=== PATIENT | female | born 1985 | race Caucasian/White ===

== ENCOUNTER → 2024-05-04 | Outpatient (CLI) | payer OTHER, SELFPAY ==
--- NOTE | 2024-05-04 15:52 | BI_ITS ---
MAMMOGRAPHY - BILATERAL SCREENING REASON FOR EXAM: Female, 38 years old. Routine annual screening examination. PERTINENT HISTORY: Grandmother with breast cancer. Remote left excisional breast biopsy. TECHNIQUE: Digital bilateral breast tatyana (3D mammographic acquisition) in the CC and MLO projections. 2-D mediolateral oblique (MLO) and craniocaudad (CC) views of both breasts were obtained. CAD: Full Field Digital Mammography with Computer Added Detection was performed. COMPARISON: None. Baseline examination. FINDINGS: Breast Composition: The breasts are extremely dense, which lowers the sensitivity of mammography. There are no dominant masses or suspicious calcifications. No other significant abnormalities are identified. BI/SCRN MAMM (CAD)W/TATYANA BILAT IMPRESSION: Negative screening mammogram. Yearly followup mammogram recommended. (A) ASSESSMENT CATEGORY: BIRADS Category 1: Negative. A letter regarding these results will be sent to the patient by the facility within 30 days. Approximately 10% of breast cancers are not detected by mammography. A normal mammogram should not delay biopsy of a clinically suspicious abnormality. [id number] Electronically Signed: Brian Catalan MD at 8:44 EST ,
== END | disposition home or self-care (01) ==
LOC: OPBI 15:49
PROVIDERS: PCP Physician Assistant
DX: Z12.31 Encounter for screening mammogram for malignant neoplasm of breast (principal)
CPT/HCPCS: 77063; 77067

== ENCOUNTER → 2025-05-07 | Outpatient (CLI) | payer OTHER, SELFPAY ==
--- NOTE | 2025-05-07 15:31 | BI_ITS ---
EXAM: SCRN MAMM (CAD)W/TATYANA BILAT DATE: 05/07/2025 CLINICAL HISTORY: F, Age 39 y/o , SCREENING Grandmother with breast cancer. Remote left excisional breast biopsy. TECHNIQUE: Procedure Code: [id number] Modality: MG Procedure: SCRN MAMM (CAD)W/TATYANA BILAT COMPARISON: Prior exam(s) dated May 04, 2024.. FINDINGS: TISSUE DENSITY: The breasts are extremely dense, which lowers the sensitivity of mammography. Bilateral Breast Mammographic Findings: No significant masses, calcifications or other abnormalities are identified. No suspicious masses, areas of developing architectural distortion, or suspicious calcifications. There has been no significant interval change. BI/SCRN MAMM (CAD)W/TATYANA BILAT IMPRESSION: Stable bilateral screening mammogram. OVERALL FINAL ASSESSMENT BI-RADS 1: NEGATIVE. RECOMMENDATION: Routine annual follow-up in 1 Year Additional Recommendation none A letter with findings and recommendations will be mailed to the patient. Reading Location: [facility]
--- OUTSIDE RECORDS SUMMARY | 2025-05-07 15:49 | XMS RPT_ITS | CCD ---
Author Organization [facility] Care Team Providers Care Lead Caster Helper Name Role Phone Mono Lamar Unavailable Unavailable Mono Lamar Unavailable Unavailable Jeet Caldwell Unavailable Unavailable Telma, Yoshi Unavailable Unavailable Telma, Yoshi Unavailable Unavailable Telma, Yoshi Unavailable Unavailable Telma, Yoshi Unavailable Unavailable Telma, Yoshi Unavailable Unavailable Katelin, Leslie Hoffman S Unavailable Unavailable Unavailable Antonino, Dee L Unavailable Unavailable Unavailable Katelin, Leslie Nag S Unavailable Unavail able Antonino, Dee L Unavailable Unavailable Jose Rafael Gillian Unavailable Unavailable Gillian Mantilla Attending Unavailable Antonino, Mrs. Dee Sanchezn Primary Care Unavailabl e ANTONINO, Mrs. PRICE JUNE Referring Unavailabl e ANTONINO, Mrs. PRICE JUNE Primary Care Unavailabl e ANTONINO, Mrs. LEVINPAT WATKINS Attending Unavailabl e ANTONINO, Mrs. LEVINPAT WATKINS Referring Unavailabl e ANTONINO, Mrs. LEVINPAT WATKINS Primary Care Unavailabl e ANTONINO, Mrs. LEVINPAT WATKINS Attending Unavailabl e ANTONINO, Mrs. PRICE JUNE Referring Unavailabl e [facility] Primary Care Unavailable ANTONINO, Mrs. LEVINPAT WATKINS Attending Unavailabl e ANTONINO, Mrs. LEVINPAT WATKINS Primary Care Unavailabl e ANTONINO, Mrs. LEVINPAT WATKINS Attending Unavailabl e ANTONINO, DEE WATKINS Referring Unavailabl e MYLES MCDONNELL Primary Care Unavailable ONI DO-NANCY ARMSTRONG Attending Unavail able MYLES MCDONNELL Primary Care Unavailable MYLES MCDONNELL Primary Care Unavailable ONI DO-FACNANCY HANSON Attending Unavail able MYLES MCDONNELL Primary Care Unavailable Antonino CAREER PLACEMENT SPECIALIST-[place], Dee Dickson Primary Care Provider Entiat CAREER PLACEMENT SPECIALIST-[place], Dee Dickson Unavailable Antonino CAREER PLACEMENT SPECIALIST-FOREIGN EXCHANGE TRADER, Dee L Unavailable Stentz PA-C, Saeed Primary Care Provider STENTZ, SAEED Primary Care Unavailable KEYANNA MARSHALL Referring Unavailable KEYANNA MARSHALL Attending Unavailable Stentz, Saeed Primary Care Unavailable Stentz PA-C, Saeed Unavailable [phone] STENTZ, SAEED Attending Unavailable STENTZ, SAEED Referring Unavailable STENTZ, SAEED Primary Care Unavailable STENTZ, SAEED Primary Care Unavailable STENTZ, SAEED Primary Care Unavailable NANCY RAHMAN Attending Unavail able STENTZ, SAEED Primary Care Unavailable Allergies Allergy Classification Reported Allergen(s) Allergy Type Date of Onset Reaction(s) Facility (12 sources) Erythromycin; Translations: [erythromycin] Drug Allergy 12-11-2022 Nausea Only [facility] Repository Medications Current Medications Medication Drug Class(es) Dates Sig (Normalized) Sig (Original) Bacillus coagulans / Inulin (3 sources) BACILLUS COAGULANS-INULIN ORAL Take by mouth. Active BACILLUS COAGULA NS-INULIN ORAL Take by mouth. 0 Active 12 hr buPROPion hydrochloride 150 mg extended release oral tablet (11 sources) Aminoketone Start: 12-24-2023 End: 06-15-2025 take 1 tablet by mouth every twelve hours buPROPion SR (Wellbutrin SR) 150 mg 12 hr tablet Indications: Anxiety Take 1 tablet (150 mg) by mouth every 12 hours. 180 tablet 3 06/15/2024 06/15/2025 Active Start: 12-11-2022 End: 12-11-2023 take 1 tablet by mouth every twelve hours buPROPion SR (Wellbutrin SR) 150 mg 12 hr tablet Indications: Anxiety Take 1 tablet (150 mg) by mouth every 12 hours. 180 tablet 3 12/11/2022 12/11/2023 Active Start: 11-16-2021 take 1 tablet by kallie th every hour buPROPion HCl ER (SR) 150 MG Oral Tablet Extended Release 12 Hour TAKE 1 TABLET Every twelve hours Quantity: 60 Refills: 5 Ordered: 19-Jun-2022 Dee Rees Start : 16-Nov-2021 Active Start: 11-16-2021 take 1 tablet by kallie th once daily, then take 1 tablet by mouth twice daily buPROPion HCl ER (SR) 150 MG Oral Tablet Extended Release 12 Hour TAKE 1 TABLET DAILY FOR 2 WEEK, THEN TAKE 1 TABLET TWICE DAILY. Quantity: 42 Refills: 0 Ordered: 16-Nov-2021 AntoninoDee Wang Start : 16-Nov-2021 Active Wellbutrin Quant ity: 0 Refills: 0 Ordered: 05-Jul-2022 Janine Poe Generic Substitution Allowed docusate sodium 250 mg oral capsule (1 source) Start: 06-13-2023 End: 08-12-2023 take 1 capsule by mouth twice daily as needed for constipation docusate sodium 250 mg capsule Indications: Chronic idiopathic constipation Take 1 capsule (250 mg) by mouth 2 times a day as needed (constipation). 60 capsule 1 06/13/2023 08/12/2023 Active levonorgestrel 0.069783 mg/hr intrauterine system (5 sources) Progestin, Progestin-contain ing Intrauterine Device levonorgestrel (Mirena) 21 mcg/24 hours (8 yrs) 52 mg IUD 52 mg by intrauterine route 1 time. Active End: 06-13-2023 levonorgestreL (Kyleena) 17. 5 mcg/24 hrs (5 yrs) 19.5 mg intrauterine device by intrauterine route once daily. 0 06/13/2023 Discontinued (Med List Cleanup) Kyleena 19.5 mg intrauterine device ; 1 each intrauterine Quantity: 0 Refills: 0 Ordered: 05-Jul-2022 Jose Rafael, Gillian Generic Substitution Allowed multivitamin tablet (3 sources) multivitamin tab let Take by mouth. Active multivitamin tab let Take by mouth. 0 Active psyllium 400 mg oral capsule (8 sources) psyllium (Metamu ciL) 0.4 gram capsule Take by mouth. Active Metamucil CAPS Q uantity: 0 Refills: 0 Ordered: 16-Nov-2021 DO Active Completed/Discontinued Medications Medication Drug Class(es) Dates Sig (Normalized) Sig (Original) Cetirizine (6 sources) Histamine-1 Receptor Antagonist Zyrtec TABS Quantity: 0 Refills: 0 Ordered: 07-Feb-2021 DO Active Multi-Vitamins TABS (6 sources) Multi-Vitamins T ABS Quantity: 0 Refills: 0 Ordered: 07-Feb-2021 DO Active norethindrone acetate 5 mg oral tablet (3 sources) End: 12-15-2021 Norethindrone Acetate 5 MG Oral Tablet Quantity: 0 Refills: 0 Ordered: 15-Dec-2021 DO End : 15-Dec-2021 Complete Norethindrone Ac etate 5 MG Oral Tablet Quantity: 0 Refills: 0 Ordered: 16-Nov-2021 DO Active Probiotic CAPS (6 sources) Probiotic CAPS Q uantity: 0 Refills: 0 Ordered: 07-Feb-2021 DO Active Problems Active Problems Problem Classification Problem Date Documented Da te Episodic/Chronic Anxiety disorders (14 sources) Anxiety; Translations: [Anxiety state, unspecified] Onset: 12-11-2022 12-11-2022 Chronic Disorders of lipid metabolism (3 sources) Raised low density lipoprotein cholesterol; Translations: [Pure hypercholesterolem ia, unspecified] Onset: 06-15-2024 06-15-2024 Chronic Fever of unknown origin (2 sources) Fever; Translations: [Fever, unspecified] 07-05-2022 Episodic Immunizations and screening for infectious disease (8 sources) Patient encounter status; Translations: [Other specified vaccination] 06-13-2023 Episodic Other gastrointestinal disorders (5 sources) Chronic idiopathic constipation; Translations: [Chronic idiopathic constipation] Onset: 12-11-2022 06-13-2023 Chronic Other gastrointestinal disorders (1 source) Chronic idiopathic constipation; Translations: [Chronic idiopathic constipation] Onset: 06-13-2023 Chronic Other gastrointestinal disorders (7 sources) Chronic constipation; Translations: [Constipation, unspecified] Onset: 12-11-2022 12-11-2022 Episodic Other screening for suspected conditions (not mental disorders or infectious disease) (5 sources) Encounter for screening for lipoid disorders; Translations: [Encounter for screening for other suspected endocrine disorder] Onset: 06-29-2023 Episodic Other upper respiratory infections (2 sources) Acute pharyngitis; Translations: [Acute pharyngitis] 07-05-2022 Episodic Residual codes; unclassified (1 source) Body mass index 20-24 - normal; Translations: [Body mass index (BMI) 24.0-24.9, adult] 06-13-2023 Episodic Residual codes; unclassified (2 sources) Body mass index (BMI) 24.0-24.9, adult; Translations: [Body mass index (BMI) 24.0-24.9, adult] Onset: 06-29-2023 Episodic Unclassified (2 sources) FEVER SORE THROAT 07-05-2022 Comment on above: FEVER SORE THROAT Past or Other Problems Problem Classification Problem Date Documented Da te Episodic/Chronic Headache; including migraine (6 sources) Headache; Translations: [Headache] Onset: 12-11-2022 12-11-2022 Episodic Other upper respiratory disease (9 sources) Nasal congestion; Translations: [Other disease of nasal cavity and sinuses] Onset: 12-11-2022 12-11-2022 Episodic Unclassified (2 sources) Onset: 06-13-2023 Resolved: 06-15-2024 06-13-2023 Results Test Name Value Interpretation Reference Range Facility THIN PREP IMAGE SEND OUTon 0 10-08-2024 THINPREP TIS PAP SEE COMMENT Normal [facility] Comment on above: Order Comment: Order ed on Fin# [id number] Result Comment: THIN PREP TIS PAP Lab: [facility] CLINICAL INFORMATION: None given LMP: None given prev. Pap: None given prev. Bx: None given SOURCE: None given STATEMENT OF ADEQUACY: Satisfactory for evaluation. Endocervical/transformation zone component present. INTERPRETATION/RESULT: Cytology Results: Negative for intraepithelial lesion or malignancy. COMMENT: This Pap test has been evaluated with computer assisted technology. FLOTATION TENDER: DAKOTA LOPEZ(ASCP) CT screening location: [facility], [address] [place] [address], [place] [address]. For questions contact Anatomic Pathology Client Services at [phone] EXPLANATORY NOTE: The Pap is a screening test for cervical cancer. It is not a diagnostic test and is subject to false negative and false positive results. It is most reliable when a satisfactory sample, regularly obtained, is submitted with relevant clinical findings and history, and when the Pap result is evaluated along with historic and current clinical information. PERFORMING SITE: [facility] [place] [facility] [address] [address] Cleaning Team Member: YUNG OSULLIVAN MD, CLIA: [id number] Performed By: #### 4 [id number] #### [facility] [address] [place] [address] Fabrication Specialist: Beck Bradford MD [facility] Physician Progress No gunnar 10-07-2024 [facility] Physician Progress Note DEANA WYLIE :1985 Registration Date:10/02/2024 Assessment/Plan Patient is a 39-year-old female with a history of PMS and IUD check up presenting today for PMS management and IUD check up. 1. Well woman exam Z01.419 2. IUD check up Z30.431 - Mirena IUD is in place and functioning as expected. - Discussed that Mirena helps blunt estrogen dominance and associated symptoms in most women. - Advised that an additional dose of progesterone can be added if mood symptoms persist. 3. Cervical cancer screening Z12.4 4. Screening mammogram, encounter for Z12.31 5. PMS (premenstrual syndrome) N94.3 - Patient experiences mood fluctuations and breast tenderness associated with PMS. - Discussed the use of additional progesterone (Prometrium) to help with mood stabilization, especially during the summer months. - Prometrium to be taken at night for its calming effects and to aid sleep. - Consideration of [id number] supplement from [employer] for PMS management as an alternative to increasing medication. - Patient to monitor symptoms and call if further intervention is needed. Medication Reconciliation What How Much When Instructions Unchanged buPROPion (BuPROPion (Eqv-Wellbutrin SR) 150 mg/ 12 hours oral tablet, extended release) Contact prescribing physician if questions or concerns Unchanged levonorgestrel (Mirena 52 mg intrauterine device) 1 Each Intrauteral ONCE Duration: 1 Doses Contact prescribing physician if questions or concerns What How Much When Comments Stop Taking miSOPROStol (Cytotec 200 mcg oral tablet) 1 Tabs Oral TWICE A DAY take one tablet the night before the procedure and take the other tablet the morning of the procedure Chief Complaint Annual, 05/01/21 HPV: Negative, 09/16/23- neg mammo 05/04/24 neg mirena 07/20/22 light spotting for period History of Present Illness Disclaimer: The content of this note was generated by an artificial intelligence (AI) language model version 25.03.0.0 well woman due for pap and hpv due for mammo mirena 2022 bleeding controlled but mood can still fluctuate aygestin in past didn't help will try prometrium she is on buproprion once a month The patient is a 39-year-old female with a history of PMS and IUD use, presenting for an annual wellness visit. PMS and Breast Tenderness The patient reports experiencing PMS symptoms, including mood fluctuations and breast tenderness, approximately once a month. These symptoms are cyclical and coincide with her menstrual cycle. Despite the use of Mirena, she still experiences these symptoms, although the bleeding is not a significant issue. IUD Check up and Mood Fluctuations The patient has been using Mirena for contraception and to manage her PMS symptoms. She reports that while the Mirena has helped with bleeding, it has not completely alleviated her mood symptoms. She has previously tried Agestin, which helped with bleeding but not with mood stabilization. The patient experiences mood fluctuations once a month, which she describes as significant but not severe enough to warrant additional medication at this time. She has not tried increasing her dose of bupropion, as her mood is generally well-managed. She is considering non-medication options, such as supplements from [employer], to help manage her PMS symptoms. Review of Systems Neurological: Negative for brain issues. Positive for mood changes. Musculoskeletal: Positive for breast tenderness. Genitourinary: Positive for light period. Negative for pain with intercourse. Physical Exam Vitals & Measurements BP: 120/70 HT: 157 cm WT: 59.2 kg BMI: 24.02 Depression Screening Scores Initial Depression Screen Score: 0 (10/02/24 11:38:00) Fall Risk Assessment Is the patient ambulatory (mobile): Yes (10/02/24 11:38:00) Have you had a fall within the past: No (10/02/24 11:38:00) Have you had 2 or more falls in the past: No (10/02/24 11:38:00) Genitourinary: No dyspareunia reported Constitutional: Appears appropriate for age, non-toxic, and comfortable. No signs of apparent distress present. Speech is clear and appropriate. Stand comfortably erect. Patient is cooperative. VSS and reviewed Eyes: Full range of extra-ocular motion. Conjunctivae clear. Neck: supple and no thyromegaly Respiratory: Chest expansion is adequate bilaterally. Abdomen: Soft and Non-tender, Non distended Musculoskeletal: Walks with a normal gait. Motor strength is intact Ext: No C/C/E Skin: Warm and dry with no evidence of unusual rashes or suspicious lesions. Neurological: Alert and oriented x 3. Mood is normal. Extremities: No clubbing, Cyanosis or edema FORGEMAN HELPER EXAM: Breast exam: normal bilateral breast tissue, no skin changes no masses and no nipple discharge, no LAD Pelvic Exam: Ext Gen: normal Vulva anatomy no rash Perineum: no lesions and intact Vagina: no cystocele or rectocele vaginal mucosa healthy (more content not included)... Normal [facility] GP HPVon 10-06-2024 GP HPV Negative Normal [facility] Comment on above: Order Comment: Order ed on Fin# [id number] Result Comment: This HPV assay is being performed via a second generation NAAT that utilizes target capture, release engineer mediated amplification and dual kenetic assay technologies. Performed By: #### 1 [id number] #### [facility] [address] [place], [place] [address] Fabrication Specialist: Beck Bradford MD SCRN MAMM (CAD)W/TATYANAАнна Dave n 05-04-2024 SCRN MAMM (CAD)W/TATYANA DANNA [facility] Imaging Services [address] [place] [address] SCRN MAMM (CAD)W/TATYANAАнна CLAY MR#: [id number] Acct: [id number] Name: DEANA WYLIE Rep #: [id number] : 1985 F 38 From: Brian boyce MD PCP: JAMEL Champion Status: REG CLI Study: SCRN MAMM (CAD)W/TATYANA BILAT Date of Exam: 02/17 Exam# [id number] Ordering Dr: NANCY BUNN [id number] MAMMOGRAPHY - BILATERAL SCREENING REASON FOR EXAM: Female, 38 years old. Routine annual screening examination. PERTINENT HISTORY: Grandmother with breast cancer. Remote left excisional breast biopsy. TECHNIQUE: Digital bilateral breast tatyana (3D mammographic acquisition) in the CC and MLO projections. 2-D mediolateral oblique (MLO) and craniocaudad (CC) views of both breasts were obtained. CAD: Full Field Digital Mammography with Computer Added Detection was performed. COMPARISON: None. Baseline examination. FINDINGS: Breast Composition: The breasts are extremely dense, which lowers the sensitivity of mammography. There are no dominant masses or suspicious calcifications. No other significant abnormalities are identified. BI/SCRN MAMM (CAD)W/TATYANA BILAT IMPRESSION: Negative screening mammogram. Yearly followup mammogram recommended. (A) ASSESSMENT CATEGORY: BIRADS Category 1: Negative. A letter regarding these results will be sent to the patient by the facility within 30 days. Approximately 10% of breast cancers are not detected by mammography. A normal mammogram should not delay biopsy of a clinically suspicious abnormality. [id number] Electronically Signed: Brian Catalan MD at 8:44 EST , CC: JAMEL Champion; NANCY BUNN Director Of Physician Practices: Signed Normal [facility] CBC panel Auto (Bld)on 06-29 Erythrocyte distribution width (RBC) [Ratio] 12.9 % Normal 11.5-14.5 [facility] Comment on above: Performed By: #### 5 8410-2 #### ANSLEY KENT ([id number]) [facility] ([facility]) [address] [place] [address] Hematocrit (Bld) [Volume fraction] 40.3 % Normal 36.0-46.0 [facility] Comment on above: Performed By: #### 5 8410-2 #### ANSLEY KENT ([id number]) [facility] ([facility]) [address] [place] [address] Hemoglobin (Bld) [Mass/Vol] 13.2 g/dL Normal 12.0-16.0 [facility] Comment on above: Performed By: #### 5 8410-2 #### ANSLEY KENT ([id number]) [facility] ([facility]) [address] [place], [place] [id number] MCH (RBC) [Entitic mass] 30.5 pg Normal 26.0-34.0 [facility] Comment on above: Performed By: #### 5 8410-2 #### ANSLEY KENT ([id number]) [facility] ([facility]) [address] [place] [address] MCHC (RBC) [Mass/Vol] 32.8 g/dL Normal 32.0-36.0 [facility] Comment on above: Performed By: #### 5 8410-2 #### ANSLEY KENT ([id number]) [facility] ([facility]) [address] [place] [address] MCV (RBC) [Entitic vol] 93 fL Normal 80-100 [facility] Comment on above: Performed By: #### 5 8410-2 #### ANSLEY KENT ([id number]) [facility] ([facility]) [address] [place] [address] Nucleated RBC/100 WBC (Bld) [Ratio] 0.0 /100 WBCs Normal 0.0-0.0 [facility] Comment on above: Performed By: #### 5 8410-2 #### ANSLEY KENT ([id number]) [facility] ([facility]) [address] [place] [address] Platelets (Bld) [#/Vol] 287 x10*3/uL Normal 150-450 [facility] Comment on above: Performed By: #### 5 8410-2 #### ANSLEY KENT ([id number]) [facility] ([facility]) [address] [place] [address] RBC (Bld) [#/Vol] 4.33 x10*6/uL Normal 4.00-5.20 [facility] Comment on above: Performed By: #### 5 8410-2 #### ANSLEY KENT ([id number]) [facility] ([facility]) [address] [place] [address] WBC (Bld) [#/Vol] 6.7 x10*3/uL Normal 4.4-11.3 [facility] Comment on above: Performed By: #### 5 8410-2 #### ANSLEY EKNT ([id number]) [facility] ([facility]) [address] [place] [address] Comprehensive metabolic 2000 panelon 06-29-2023 Albumin BCP dye [Mass/Vol] 4.4 g/dL Normal 3.4-5.0 [facility] Comment on above: Performed By: #### 2 4323-8 #### ANSLEY KENT ([id number]) [facility] ([facility]) [address] [place], [place] [address] ALP [Catalytic activity/Vol] 51 U/L Normal 33-110 [facility] Comment on above: Performed By: #### 2 4323-8 #### ANSLEY KENT ([id number]) [facility] ([facility]) [address] [place], [place] [address] ALT With P-5'-P [Catalytic activity/Vol] 9 U/L Normal 7-45 [facility] Comment on above: Result Comment: Edith ents treated with Sulfasalazine may generate falsely decreased results for ALT. Performed By: #### 2 4322-8 #### ANSLEY KENT ([id number]) [facility] ([facility]) [address] [place] [address] Anion gap [Moles/Vol] 11 mmol/L Normal 10-20 [facility] Comment on above: Performed By: #### 2 4322-8 #### ANSLEY KENT ([id number]) [facility] ([facility]) [address] [place] [address] AST With P-5'-P [Catalytic activity/Vol] 13 U/L Normal 9-39 [facility] Comment on above: Performed By: #### 2 4322-8 #### ANSLEY KENT ([id number]) [facility] ([facility]) [address] [place] [address] Bilirubin [Mass/Vol] 0.4 mg/dL Normal 0.0-1.2 [facility] Comment on above: Performed By: #### 2 4322-8 #### ANSLEY KENT ([id number]) [facility] ([facility]) [address] [place] [address] Calcium [Mass/Vol] 9.3 mg/dL Normal 8.6-10.3 [facility] Comment on above: Performed By: #### 2 4322-8 #### ANSLEY KENT ([id number]) [facility] ([facility]) [address] [place] [address] Chloride [Moles/Vol] 105 mmol/L Normal 98-107 [facility] Comment on above: Performed By: #### 2 4322-8 #### ANSLEY KENT ([id number]) [facility] ([facility]) [address] [place] [address] CO2 [Moles/Vol] 27 mmol/L Normal 21-32 [facility] Comment on above: Performed By: #### 2 4322-8 #### ANSLEY KENT ([id number]) [facility] ([facility]) [address] [place] [address] Creatinine [Mass/Vol] 0.73 mg/dL Normal 0.50-1.05 [facility] Comment on above: Performed By: #### 2 4323-8 #### ANSLEY KENT ([id number]) [facility] ([facility]) [address] [place] [address] GFR/1.73 sq M.predicted MDRD (S/P/Bld) [Vol rate/Area] mL/min/{1.73_m2} Normal >60 [facility] Comment on above: Result Comment: Calc ulations of estimated GFR are performed using the 2020 CKD-EPI Study Refit equation without the race variable for the IDMS-Traceable creatinine methods. https://jasn.asnjournals.org/content/early/ASN.428128924 8 Performed By: #### 2 4323-8 #### ANSLEY KENT ([id number]) [facility] ([facility]) [address] [place] [address] Glucose [Mass/Vol] 77 mg/dL Normal 74-99 [facility] Comment on above: Performed By: #### 2 4323-8 #### ANSLEY KENT ([id number]) [facility] ([facility]) [address] [place] [address] Potassium [Moles/Vol] 4.5 mmol/L Normal 3.5-5.3 [facility] Comment on above: Performed By: #### 2 4323-8 #### ANSLEY KENT ([id number]) [facility] ([facility]) [address] [place] [address] Protein [Mass/Vol] 6.8 g/dL Normal 6.4-8.2 [facility] Comment on above: Performed By: #### 2 4323-8 #### ANSLEY KENT ([id number]) [facility] ([facility]) [address] [place] [address] Sodium [Moles/Vol] 138 mmol/L Normal 136-145 [facility] [facility] Comment on above: Performed By: #### 2 4323-8 #### ANSLEY KENT ([id number]) [facility] ([facility]) [address] [place] [address] Urea nitrogen [Mass/Vol] 9 mg/dL Normal 6-23 [facility] Comment on above: Performed By: #### 2 4323-8 #### ANSLEY KENT ([id number]) [facility] ([facility]) [facility] [place] [address] Lipid 1996 panelon 4 Cholesterol [Mass/Vol] 192 mg/dL Normal 0-199 [facility] Comment on above: Result Comment: Age Desirable Borderline High High 0-19 Y 0 - 169 170 - 199 >/= 200 20-24 Y 0 - 189 190 - 224 >/= 225 >24 Y 0 - 199 200 - 239 >/= 240 All ranges are based on fasting samples. Specific therapeutic targets will vary based on patient-specific cardiac risk. Pediatric guidelines reference:Pediatrics 2011, 128(S5).Adult guidelines reference: NCEP ATPIII Guidelines,JEN 2001, 258:2486-97 Venipuncture immediately after or during the administration of Metamizole may lead to falsely low results. Testing should be performed immediately prior to Metamizole dosing. Performed By: #### 2 4331-1 #### ANSLEY KENT ([id number]) [facility] ([facility]) [address] [place] [address] Cholesterol in HDL [Mass/Vol] 50.0 mg/dL Normal [facility] Comment on above: Result Comment: Age Very Low Low Normal High 0-19 Y < 35 < 40 40-45 ---- 20-24 Y ---- < 40 >45 ---- >24 Y ---- < 40 40-60 >60 Performed By: #### 2 4331-1 #### ANSLEY KENT ([id number]) [facility] ([facility]) [facility] [place] [address] Cholesterol in LDL [Mass/Vol] 127 mg/dL High <=99 [facility] Comment on above: Result Comment: Near Borderline AGE Desirable Optimal High High Very High 0-19 Y 0 - 109 --- 110-129 >/= 130 ---- 20-24 Y 0 - 119 --- 120-159 >/= 160 ---- >24 Y 0 - 99 100-129 130-159 160-189 >/=190 Performed By: #### 2 4331-1 #### ANSLEY KENT ([id number]) [facility] ([facility]) [address] [place] [address] Cholesterol in VLDL [Mass/Vol] 15 mg/dL Normal 0-40 [facility] Comment on above: Performed By: #### 2 4331-1 #### ANSLEY KENT ([id number]) [facility] ([facility]) [address] [place] [address] CHOLESTEROL/HDL RATIO 3.8 Normal [facility] Comment on above: Result Comment: Ref Values Desirable < 3.4 High Risk > 5.0 Performed By: #### 2 4331-1 #### ANSLEY KENT ([id number]) [facility] ([facility]) [address] [place] [address]1970 NON HDL CHOLESTEROL 142 mg/dL Normal 0-149 [facility] Comment on above: Result Comment: Age Desirable Borderline High High Very High 0-19 Y 0 - 119 120 - 144 >/= 145 >/= 160 20-24 Y 0 - 149 150 - 189 >/= 190 ---- >24 Y 30 mg/dL above LDL Cholesterol goal Performed By: #### 2 4331-1 #### ANSLEY KENT ([id number]) [facility] ([facility]) [address] [place] [address] Triglyceride [Mass/Vol] 77 mg/dL Normal 0-149 [facility] Comment on above: Result Comment: Age Desirable Borderline High High Very High 0 D-90 D 19 - 174 ---- ---- ---- 91 D- 9 Y 0 - 74 75 - 99 >/= 100 ---- 10-19 Y 0 - 89 90 - 129 >/= 130 ---- 20-24 Y 0 - 114 115 - 149 >/= 150 ---- >24 Y 0 - 149 150 - 199 200- 499 >/= 500 Venipuncture immediately after or during the administration of Metamizole may lead to falsely low results. Testing should be performed immediately prior to Metamizole dosing. Performed By: #### 2 4331-1 #### ANSLEY KENT ([id number]) [facility] ([facility]) [address] [place] [address] TSH WITH REFLEX TO FREE T4 I F ABNORMALon 06-29-2023 TSH Qn 1.65 m[IU]/L Normal 0.44-3.98 [facility] Comment on above: Order Comment: TSH t esting is performed using different testing methodology at [facility] than at other [facility]. Direct result comparisons should only be made within the same method. Performed By: #### T HYDS #### PANCHAL DONTE ([id number]) [facility] ([facility]) [address] [place] [address] Covid 19 Resultson 3 SARS-CoV-2 (COVID-19) RNA KAE+probe Ql (Unsp spec) NEGATIVE COVID-19 Test Coronaviruses are common world-wide and are the cause of many common colds. SARS-COV2 is a new coronavirus that began circulating worldwide in 2019 so we are calling it COVID-19. It has been estimated that four out of five patients with COVID-19 will recover at home without the need for medical attention. Symptoms of COVID-19 may include cough, fever, shortness of breath, loss of taste or smell and other flu-like symptoms including chills, sore muscles, sore throat, and headache. Severe illness is more common in older people and people with other health problems such as high blood pressure, obesity, and immune system problems. If the test is positive, you have COVID-19. You will be contacted by the ordering physicians office and instructed to remain on home isolation, in accordance with CDC guidelines. You may also be contacted by the [facility] to see if any of your close contacts may have been exposed to the virus and need to quarantine. If the test is negative, you likely do not have COVID-19 at this time, but you still may have a different illness that can spread to other people (like Influenza, or the Flu) and could still be at risk for getting COVID-19. We recommend that you stay away from other people to limit the spread of illness until your symptoms are improving and you are fever-free for 24 hours without the use of fever lowering medications such as acetaminophen or ibuprofen. No test is 100% accurate so if you are still concerned you may have COVID-19, talk to your doctor about the need to continue to stay away from others. Medicines Unless your provider told you not to use the following: Acetaminophen (Tylenol and others) is generally safe. Anti-inflammatory medications, such as Ibuprofen (Advil or Motrin) or Naproxen (Aleve) can also be used. Tumw-nnt-kqsgyai cough and cold medicines can be used according to the instructions on the package. Some nxtd-twm-hxexxal medicines also contain acetaminophen. Make sure you are not taking more than your recommended dose. For those not hospitalized, there is no specific treatment available for this illness. Antibiotics do not treat Coronaviruses. Follow-Up Follow up with your doctor by scheduling a virtual visit or consider follow-up at one of our urgent care fever clinics. If you are having difficulty breathing, or are very weak and having difficulty standing, this is a medical emergency. Call 911 or have someone take you to the nearest emergency room immediately. If possible, wear a facemask. Additional guidance from the CDC for patients who tested POSITIVE for COVID-19 How to isolate: Isolate yourself in a specific room at home and limit your contact with others. Use a separate bathroom from other members of the household, when possible. Leave home only to get essential medical care. Do not go to work, school or public areas. Avoid using public transportation, ride-sharing, or taxis. Restrict contact with pets and other animals. If you must care for your pet or be around animals while you are sick, wash your hands before and after your interaction and wear a facemask. Make sure that shared spaces in the home have good airflow, such as by an air conditioner or an opened window, weather permitting. Personal Hygiene Procedures: Wear a face mask when in the same room as other people or pets. If a face mask interferes with your breathing, others should wear a mask when sharing space with you. Frequent hand-washing: wash your hands with soap and water for at least 20 seconds. If soap and water are not available, use alcohol-based hand fiberglass technician. Avoid touching your eyes, nose, and mouth with unwashed hands. Household Hygiene Procedures: Avoid sharing personal household items such as dishes, glassware, cups, eating utensils, towels or bedding with other people or pets in your home. After use, these items should be washed with soap and hot water. Disinfect all high-touch surfaces every day with antibacterial cleaning solutions such as Lysol wipes, bleach, cleansers, etc. High-touch surfaces include tabletops, doorknobs, bathroom fixtures, toilets, phones, keyboards, tablets and bedside tables. Immediately clean any surfaces that may have blood, poop or body fluids on them, using antibacterial cleaning solutions such as Lysol wipes, bleach, cleansers, etc. If clothing or bedding come into contact with blood, poop or body fluids, they should be washed immediately. Follow the directions on the laundry detergent and clothing labels but hot water is recommended when possible. Stopping home isolation precautions: If possible, consult your doctor before stopping home isolation precautions. According to the CDC, you can discontinue home isolation precautions when you have met both of these criteria: Your fever and respiratory symptoms have been gone for 24 rosa (more content not included)... Normal [facility] GROUP A STREP,PCRon 07-05-19 GROUP A STREP,PCR Detected Abnormal Not Detected [facility] Comment on above: Result Comment: This test was performed utilizing an FDA- cleared rapid nucleic acid amplification by PCR to qualitatively detect Group A Streptococci from throat swab specimens without the need for culture confirmation of negative results. Performed By: #### G APC1 #### [place] [address] Lab Specimen Source Throat Normal [facility] Comment on above: Performed By: #### G APC1 #### [place] [address] INFLUENZA A/B, COVID 2019 PC R,SYMPTOMATICon 07-05-2022 INFLUENZA A, PCR Not detected Normal Not Detected [facility] Comment on above: Result Comment: Resp iratory virus testing is performed routinely by PCR for Influenza A/B and RSV. Not Detected results do not preclude Influenza A/B or RSV infections since the adequacy of sample collection or low viral burden may impact the clinical sensitivity of this test method. Performed By: #### C OINP #### [place] [address] INFLUENZA B, PCR Not detected Normal Not Detected [facility] Comment on above: Result Comment: Resp iratory virus testing is performed routinely by PCR for Influenza A/B and RSV. Not Detected results do not preclude Influenza A/B or RSV infections since the adequacy of sample collection or low viral burden may impact the clinical sensitivity of this test method. Performed By: #### C OINP #### [place] [address] SARS-CoV-2 (COVID-19) RNA KAE+probe Ql (Unsp spec) Not detected Normal Not Detected [facility] Comment on above: Result Comment: . This test has received FDA Emergency Use Authorization (EUA) and has been verified by [facility]. This test is only authorized for the duration of time that circumstances exist to justify the authorization of the emergency use of in vitro diagnostic tests for the detection of SARS-CoV-2 virus and/or diagnosis of COVID-19 infection under section 564(b)(1) of the Act, 21 U.S.C. 360bbb-3(b)(1), unless the authorization is terminated or revoked sooner. [facility] is certified under CLIA-88 as qualified to perform high complexity testing. Testing is performed in the [facility] laboratory located at [address] [place] [address]. SARS-CoV-2/Flu/RSV Multiplex Test: Fact sheet for providers: https://www.fda.gov/media/028763/download Fact sheet for patients: https://www.fda.gov/media/017984/download Performed By: #### C OINP #### [place] [address] Lab Specimen Source Nasal, Nasopharyngeal Normal [facility] Comment on above: Performed By: #### C OINP #### [place] [address] Provider Note - ED v3on Provider Note - ED v3 Provider Note: Chart Review HISTORY OF PRESENTING ILLNESS DEANA is a 37 year old Female and was seen by me at 05-Jul-2022 09:09. The historian is the patient. Triage Information: Most recent Vital Sign Value Date PAST MEDICAL HISTORY ALLERGIES/INTOLERANCES: Intolerance Allergen: azithromycin Type: Drug Reaction: GI Upset HEALTH HISTORY: History of anxiety; no other known health issues. Family history: no pertinent history. Social history: non-smoker. . 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 OUTPATIENT MEDICATIONS: Home Medications Review Status for Reconciliation: Complete Med Status: Patient Currently Takes Medications Drug Name: Wellbutrin Instructions: null SIGNIFICANT EVENTS: No known significant events or known past surgical history. Has received 4 doses of the COVID-19 vaccine; has received the [id number] flu vaccine. 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 She has also had fatigue and a slight headache. She denies any runny nose/congestion, ear pain, cough, abdominal pain, chest pain, wheezing/shortness of breath, rashes, urinary symptoms, nausea/vomiting, and diarrhea. Denies any lightheadedness or dizziness; no changes in mental status. No swelling in legs. Appetite is poor but is able to drink fluids without difficulty; denies any loss of sense of taste/smell. Reports feels like symptoms are getting worse since onset. Has been taking Ibuprofen with some relief; no other goqs-igi-yaoayrv medications or home remedies for symptom management. 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 Has received the COVID-19 vaccine x4; has received this year's flu vaccine. Had COVID infection in 01/2022. Is not a smoker. Has IUD for contraception. REVIEW OF SYSTEMS 10 systems reviewed negative with exception of history of present illness listed above PHYSICAL EXAMINATION General: Mildly ill-appearing, well nourished female; alert and oriented; in no acute distress. Sitting comfortably on exam table. Non-dyspneic. Eyes: Pupils equal, round and reactive to light. No conjunctival erythema; no scleral icterus. HENT: No frontal or maxillary sinus tenderness/pressure; no audible nasal congestion. Airway patent, TMs and ear canals clear/unremarkable bilaterally. Oral mucosa moist. Posterior pharynx moderately injected but without vesicles or oropharyngeal exudate. Uvula is midline. Managing oral secretions without difficulty. Neck: Supple. Tender, mobile anterior cervical lymphadenopathy bilat. Trachea is midline. Respiratory: Respirations easy and unlabored, Breath sounds equal. Lungs are clear to auscultation; no wheezes, rhonchi, or rales; has good air movement throughout. No cough noted during visit. Non-dyspneic with ambulation; able to maintain SpO2. Cardiovascular: Tachycardic rate, Regular rhythm. Normal S1S2. No m/r/g. No peripheral edema. Gastrointestinal: Soft, non-tender, non-distended; no RRG. No palpable masses or organomegaly. Bowel sounds normoactive. Musculoskeletal: Grossly normal; appropriate for age. Integumentary: Comunas, warm, dry, and intact. No rashes or skin discoloration appreciated. Good skin turgor. Neurologic: Alert and oriented, no gross deficits. Cognition and Speech: Oriented, Speech clear and coherent. Psychiatric: Cooperative, Appropriate mood & affect. MEDICAL DECISION MAKING Course: Worsening; stable. Impression/Plan: No red flags on exam today, but patient is febrile and tachycardic in office - has not taken any antipyretics yet today. I have reviewed the COVID-19 algorithm, and counseled pt on COVID-19 current recommendations. Symptoms consistent with viral syndrome, but reviewed other potential etiologies, and strep test and nasal swab obtained (using proper PPE) for influenza/COVID-19 testing to err on the side of caution. No antibiotics indicated at this point, but encouraged to continue conservative measures - instructed to push non-caffeinated fluids, rest, and to use appropriate over the counter medications as needed for management of symptoms - Tylenol/ibuprofen, salt water gargles, and Cepacol may be helpful. Advised can review test results on the portal and office will contact pt within the next 24-48 hours. Reviewed instructions for self-isolat (more content not included)... Normal [facility] Office Visit (Family Jerrell hobbs)on 06-19-2022 Follow-up visit Diagnoses/Problems Encounter for preventive health examination (V70.0) (Z00.00) Anxiety (300.00) (F41.9) Chronic constipation (564.00) (K59.09) Orders Anxiety Renew: buPROPion HCl ER (SR) 150 MG Oral Tablet Extended Release 12 Hour; TAKE 1 TABLET Every twelve hours Anxiety, Chronic constipation, Health Maintenance Follow-up visit in 9 Months Outpatient Follow-up Status: Hold For - Scheduling Requested for: 19Jun2022 Provider Impressions Anxiety: Chronic, well controlled on Wellbutrin 150 mg twice daily, no change Chronic constipation: Continue on Metamucil daily, advises to take OTC MiraLAX daily as needed. Follow up in 9 months, annual wellness due at that time Chief Complaint 6 month. History of Present Illness Deana is a 37 yo female, here today for follow up on anxiety She reports anxiety is same, well controlled on current medication States she feels great continues to have occasional constipation, take daily fiber no change in appetite, No acute health concerns today 'Scores and Scales' MARKEL-7 [id number] MARKEL-7 Total Score1 11 Feeling nervous, anxious or on edgeSeveral days - 1 Over half the days - 2 Not being able to stop or control worryingNot at all - 0 Several days - 1 Worrying too much about different thingsNot at all - 0 Several days - 1 Trouble relaxingNot at all - 0 Over half the days - 2 Being so restless that it's hard to sit stillNot at all - 0 Not at all - 0 Becoming easily annoyed or irritableNot at all - 0 Nearly every day - 3 Feeling afraid as if something awful might happenNot at all - 0 Over half the days - 2 Review of Systems Constitutional: no chills, no fever and no night sweats. Cardiovascular: no chest pain, no intermittent leg claudication, no lower extremity edema, no palpitations and no syncope. Respiratory: no cough, no shortness of breath during exertion, no shortness of breath at rest and no wheezing. Gastrointestinal: no abdominal pain, no blood in stools, no constipation, no diarrhea, no melena, no nausea, no rectal pain and no vomiting. Genitourinary: no dysuria, no change in urinary frequency, no urinary hesitancy, no feelings of urinary urgency and no vaginal discharge. Musculoskeletal: no arthralgias, no back pain and no myalgias. Integumentary: no new skin lesions and no rashes. Neurological: no difficulty walking, no headache, no limb weakness, no numbness and no tingling. Psychiatric: no anxiety and no depression. Active Problems Anxiety (300.00) (F41.9) Chronic constipation (564.00) (K59.09) Encounter for immunization (V03.89) (Z23) Headache (784.0) (R51.9) Nasal congestion (478.19) (R09.81) Surgical History History of Lumpectomy left breast 2006 Family History Family history of hyperlipidemia (V18.19) (Z83.438) Family history of hyperlipidemia (V18.19) (Z83.438) Family history of hypertension (V17.49) (Z82.49) Family history of malignant melanoma (V16.8) (Z80.8) Family history of malignant neoplasm of breast (V16.3) (Z80.3) Family history of malignant neoplasm of ovary (V16.41) (Z80.41) Family history of malignant neoplasm of stomach (V16.0) (Z80.0) Family history of malignant melanoma (V16.8) (Z80.8) Social History Never a smoker No advance directives (V49.89) (Z78.9) Allergies erythromycin Nausea; Recorded By: Richa Solares; 03/29/2020 4:39:23 PM Current Meds Medication NameInstructionReason buPROPion HCl ER (SR) 150 MG Oral Tablet Extended Release 12 HourTAKE 1 TABLET Every twelve hoursAnxiety Metamucil CAPS Multi-Vitamins TABS Probiotic CAPS Zyrtec TABS Vitals Vital Signs Recorded: 19Jun2022 03:53PM Heart Rate94 Ivfdniao832 Phzejrmkk33 Height5 ft 1.75 in Ghogpt232 lb 7 oz BMI Pvwwqslqwk85.63 kg/m2 BSA Calculated1.66 Tobacco Useb) No Physical Exam Constitutional: Alert and in no acute distress. Well developed, well nourished. Cardiovascular: Heart rate and rhythm were normal, normal S1 and S2, no gallops, no murmurs and no pericardial rub. Pedal pulses: Normal. No peripheral edema. Pulmonary: No respiratory distress. Clear bilateral breath sounds. Psychiatric: Alert and oriented x 3. Mood and affect: Normal. Signatures Electronically signed by : TORIE Martin; Jun 20 2022 8:51PM EST (Author) Normal [employer] Tobacco Screening.on 023 Tobacco use status [facility] b) No -[facility] Work Phone: No Panel Informationon 12-15 Not at all - 0 [facility] Work Phone: Several days - 1 MP-[address] [facility] Work Phone: Minimal Anxiety [facility] Work Phone: Not difficult at all MP-A [facility] Work Phone: Comment on above: How difficult have t hose problems made it for you to do your work, take care of things at home, or get along with other people? 1 1 [facility] Work Phone: Comment on above: Over the last two we eks, how often have you been bothered by the following problems? Feeling nervous, anxious, or on edge: Several days - 1Not being able to stop or control worrying: Not at all - 0Worrying too much about different things: Not at all - 0Trouble relaxing: Not at all - 0Being so restless that it's hard to sit still: Not at all - 0Becoming easily annoyed or irritable: Not at all - 0Feeling afraid as if something awful might happen: Not at all - 0 Office Visit (Family Medicin e)on 12-15-2021 Follow-up visit Diagnoses/Problems Anxiety (300.00) (F41.9) Headache (784.0) (R51.9) Orders Anxiety Renew: buPROPion HCl ER (SR) 150 MG Oral Tablet Extended Release 12 Hour; TAKE 1 TABLET Every twelve hours Follow-up visit in 6 months Outpatient Follow-up Status: Complete Done: 15Dec2021 Provider Impressions Anxiety: MARKEL-7 score improved from 11 to 1, Well controlled, continue on Wellbutrin twice daily. Headache: Can take OTC Tylenol or Ibuprofen as needed. Encouraged to stay hydrated and focus on healthy diet. Constipation: Increase Metamucil to 2 tablets twice a day, continue on Probiotic. follow up in 6 months Chief Complaint 1 month. Adult Risk Screening Depression/Suicide Screening: During the past 2 weeks, the patient has not felt down, depressed or hopeless. During the past 2 weeks, the patient has not felt little interest or pleasure in doing things. History of Present Illness Deana is a 36 yo female here to follow up on Anxiety. 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 She is now on Wellbutrin twice a day. She states she has had an increase in headaches however she isn't sure if it is from new the Wellbutrin or from stopping the hormone. She states headache are infrequent and tolerable at this time. She reports constipation is improving but still having some days of constipation, is taking Metamucil tablets in AM and a daily probiotic. Denies any other Health concerns 'Scores and Scales' MARKEL-7 [id number] MARKEL-7 Total Score1 11 Feeling nervous, anxious or on edgeSeveral days - 1 Over half the days - 2 Not being able to stop or control worryingNot at all - 0 Several days - 1 Worrying too much about different thingsNot at all - 0 Several days - 1 Trouble relaxingNot at all - 0 Over half the days - 2 Being so restless that it's hard to sit stillNot at all - 0 Not at all - 0 Becoming easily annoyed or irritableNot at all - 0 Nearly every day - 3 Feeling afraid as if something awful might happenNot at all - 0 Over half the days - 2 Review of Systems Constitutional: no chills, no fever and no night sweats. Cardiovascular: no chest pain, no intermittent leg claudication, no lower extremity edema, no palpitations and no syncope. Respiratory: no cough, no shortness of breath during exertion, no shortness of breath at rest and no wheezing. Gastrointestinal: no abdominal pain, no blood in stools, no constipation, no diarrhea, no melena, no nausea, no rectal pain and no vomiting. Genitourinary: no dysuria, no change in urinary frequency, no urinary hesitancy, no feelings of urinary urgency and no vaginal discharge. Neurological: headache, but as noted in HPI. Psychiatric: no homicidal thoughts and no suicidal ideations. Endocrine: no recent weight gain and no recent weight loss. Active Problems Anxiety (300.00) (F41.9) Chronic constipation (564.00) (K59.09) Encounter for immunization (V03.89) (Z23) Nasal congestion (478.19) (R09.81) Surgical History History of Lumpectomy left breast 2006 Family History Family history of hyperlipidemia (V18.19) (Z83.438) Family history of hyperlipidemia (V18.19) (Z83.438) Family history of hypertension (V17.49) (Z82.49) Family history of malignant melanoma (V16.8) (Z80.8) Family history of malignant neoplasm of breast (V16.3) (Z80.3) Family history of malignant neoplasm of ovary (V16.41) (Z80.41) Family history of malignant neoplasm of stomach (V16.0) (Z80.0) Family history of malignant melanoma (V16.8) (Z80.8) Social History Never a smoker No advance directives (V49.89) (Z78.9) Allergies erythromycin Nausea; Recorded By: Richa Solares; 03/29/2020 4:39:23 PM Current Meds Medication NameInstructionReason buPROPion HCl ER (SR) 150 MG Oral Tablet Extended Release 12 HourTAKE 1 TABLET Every twelve hoursAnxiety Metamucil CAPS Multi-Vitamins TABS Probiotic CAPS Zyrtec TABS Vitals Vital Signs Recorded: [id number] 01:37PM Heart Rate72 Ksgjsiwx442 Gswpkxnmj94 Height5 ft 1.75 in Pdqalq235 lb 8 oz BMI Dhnskkhksv42.75 kg/m2 BSA Calculated1.69 Tobacco Useb) No Physical Exam Constitutional: Alert and in no acute distress. Well developed, well nourished. Cardiovascular: Heart rate and rhythm were normal, normal S1 and S2, no gallops, no murmurs and no pericardial rub. Pedal pulses: Normal. No peripheral edema. Pulmonary: No respiratory distress. Clear bilateral breath sounds. Abdomen: Soft nontender; no abdominal mass palpated. No organomegaly. Psychiatric: Judgment and insight: Intact. Mood and affect: Normal. Signatures Electronically signed by : TORIE Martin; Dec 15 2021 1:57PM EST (Author) Normal [facility] Tobacco Screening.on 022 Tobacco use status CP b) No -[facility] Work Phone: No Panel Informationon 11-16 Over half the days - 2 -[facility] Work Phone: Nearly every day - 3 MP-[facility] Work Phone: Not at all - 0 [facility] Work Phone: Several days - 1 [facility] Work Phone: Moderate Anxiety [facility] Work Phone: Somewhat difficult MP-Y[facility] Work Phone: Comment on above: How difficult have t hose problems made it for you to do your work, take care of things at home, or get along with other people? 11 1 [facility] Work Phone: Comment on above: Over the last two we eks, how often have you been bothered by the following problems? Feeling nervous, anxious, or on edge: Over half the days - 2Not being able to stop or control worrying: Several days - 1Worrying too much about different things: Several days - 1Trouble relaxing: Over half the days - 2Being so restless that it's hard to sit still: Not at all - 0Becoming easily annoyed or irritable: Nearly every day - 3Feeling afraid as if something awful might happen: Over half the days - 2 Office Visit ([facility] Medicin e)on 11-16-2021 Follow-up visit Diagnoses/Problems Anxiety (300.00) (F41.9) Orders Anxiety Start: buPROPion HCl ER (SR) 150 MG Oral Tablet Extended Release 12 Hour; TAKE 1 TABLET DAILY FOR 2 WEEK, THEN TAKE 1 TABLET TWICE DAILY Follow-up visit in 1 month Outpatient Follow-up Status: Complete Done: 16Nov2021 Provider Impressions Anxiety: MARKEL score increased at 11, will start on Wellbutrin 150 mg daily will increase dose to 150 mg BID in 2 weeks. Patient to follow up in 1 month. Encouraged to speak with [facility] regarding hormone therapy. Follow up in 1 month Chief Complaint Follow-up on anxiety issues. Adult Risk Screening Depression/Suicide Screening: During the past 2 weeks, the patient has not felt down, depressed or hopeless. During the past 2 weeks, the patient has not felt little interest or pleasure in doing things. History of Present Illness Deana is a 36 yo female here today with complaints of increased anxiety. She has attempted lifestyle changes including diet, exercise, and appropriate sleep, however anxiety is worsening. Anxiety has worsened over last few months, was started on progesterone in April, has has a 10 lb weight gain. Feels as though the weight gain is caused by hormone and/or the anxiety. She would like to start on medication at this time. 'Scores and Scales' MARKEL-7 [id number] MARKEL-7 Total Score11 Feeling nervous, anxious or on edgeOver half the days - 2 Not being able to stop or control worryingSeveral days - 1 Worrying too much about different thingsSeveral days - 1 Trouble relaxingOver half the days - 2 Being so restless that it's hard to sit stillNot at all - 0 Becoming easily annoyed or irritableNearly every day - 3 Feeling afraid as if something awful might happenOver half the days - 2 Review of Systems Constitutional: no chills, no fever and no night sweats. Cardiovascular: no chest pain, no intermittent leg claudication, no lower extremity edema, no palpitations and no syncope. Respiratory: no cough, no shortness of breath during exertion, no shortness of breath at rest and no wheezing. Gastrointestinal: no abdominal pain, no blood in stools, no constipation, no diarrhea, no melena, no nausea, no rectal pain and no vomiting. Genitourinary: no dysuria, no change in urinary frequency, no urinary hesitancy, no feelings of urinary urgency and no vaginal discharge. Neurological: no difficulty walking, no headache, no limb weakness, no numbness and no tingling. Psychiatric: anxiety, but as noted in HPI, no depression, no anhedonia and no substance use disorders. Active Problems Anxiety (300.00) (F41.9) Chronic constipation (564.00) (K59.09) Encounter for immunization (V03.89) (Z23) Nasal congestion (478.19) (R09.81) Surgical History History of Lumpectomy left breast 2006 Family History Family history of hyperlipidemia (V18.19) (Z83.438) Family history of hyperlipidemia (V18.19) (Z83.438) Family history of hypertension (V17.49) (Z82.49) Family history of malignant melanoma (V16.8) (Z80.8) Family history of malignant neoplasm of breast (V16.3) (Z80.3) Family history of malignant neoplasm of ovary (V16.41) (Z80.41) Family history of malignant neoplasm of stomach (V16.0) (Z80.0) Family history of malignant melanoma (V16.8) (Z80.8) Social History Never a smoker No advance directives (V49.89) (Z78.9) Allergies erythromycin Nausea; Recorded By: Richa Solares; 03/29/2020 4:39:23 PM Current Meds Medication NameInstructionReason Metamucil CAPS Multi-Vitamins TABS Norethindrone Acetate 5 MG Oral Tablet Probiotic CAPS Zyrtec TABS Vitals Vital Signs Recorded: 16Nov2021 10:46AM Heart Rate81 Ojdjcutw999 Ybsqtbchg90 Height5 ft 1.75 in Sutyoz778 lb 6 oz BMI Txilikuast68.99 kg/m2 BSA Calculated1.67 Tobacco Useb) No Physical Exam Constitutional: Alert and in no acute distress. Well developed, well nourished. Cardiovascular: Heart rate and rhythm were normal, normal S1 and S2, no gallops, no murmurs and no pericardial rub. Pedal pulses: Normal. No peripheral edema. Pulmonary: No respiratory distress. Clear bilateral breath sounds. Psychiatric: Judgment and insight: Intact. Mood and affect: Normal. Signatures Electronically signed by : TORIE Martin; Nov 16 2021 12:51PM EST (Author) Normal [facility] Tobacco Screening.on 022 Tobacco use status [facility] b) No -[facility] Work Phone: Alicja 07-25-2021 CNOV Office Visit ([facility] ) ----- DEANA WYLIE ([id number]) 1985 F Date Time Provider Department 07/25/21 8:45 AM ABHI HAIDER [facility] During your visit today, we recorded the following information about you: Temperature Pulse Respiration Blood pressure 98.4 degrees 89/minute 18/minute 128/82 Weight 65.6 kg Abhi Haider APRN.FOREIGN EXCHANGE TRADER 07/25/2021 9:30 AM Signed Subjective HPI Nontoxic-appearing female presents urgent care chief complaint sore throat. Duration of sore throat 2 to 3 days. Associated symptoms sore throat headache body aches. States presents today due to new onset body aches. Denies any outside the home sick contacts. 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 States her children at home have colds. No OTC medication use today. Denies any significant pain. Denies any fever chills productive cough chest pain shortness of breath nausea vomiting abdominal pain rashes difficulty swallowing decreased range of motion neck trismus. Past medical history prescription medication use allergies reviewed. Is vaccine against COVID-19. Did have COVID-14 April 2020. .Patient presents with: Sore Throat: ST, LUDWIG and bodyaches x 2 days PAST MEDICAL HISTORY Diagnosis Date - Fibrocystic breast disease - PCOS (polycystic ovarian syndrome) PAST SURGICAL HISTORY Procedure Laterality Date - BREAST LUMPECTOMY HX Left 2006 - VAGINAL DELIVERY W/ANTE/POST CARE 10/28/2011 ALLERGIES Erythromycin MEDICATIONS ibuprofen (MOTRIN) 600 mg tablet Take 1 tablet by mouth every 6 hours as needed. PNV COMBO#47/IRON/FA #1/DHA (PNV-DHA ORAL) Take 1 tablet by mouth once daily. FAMILY HISTORY Problem Relation Age of Onset - Hypertension Father - Breast Cancer Maternal Grandmother - Cancer Paternal Grandfather brain - Diabetes Paternal Grandfather - Ovarian cancer Paternal Grandmother Social History Tobacco Use - Smoking status: Never Smoker - Smokeless tobacco: Never Used Substance Use Topics - Alcohol use: No - Drug use: No BP 128/82 Pulse 89 Temp 36.9 ?C (98.4 ?F) (Tympanic) Resp 18 Wt 65.6 kg (144 lb 9.6 oz) LMP 01/10/2015 SpO2 98% BMI 26.45 kg/m? Review of Systems Constitutional: Positive for malaise/fatigue. Negative for chills and fever. HENT: Positive for congestion and sore throat. Negative for ear discharge, ear pain and sinus pain. Eyes: Negative for blurred vision, pain, discharge and redness. Respiratory: Negative for cough, hemoptysis, sputum production, shortness of breath, wheezing and stridor. Cardiovascular: Negative for chest pain. Gastrointestinal: Negative for abdominal pain, diarrhea, nausea and vomiting. Musculoskeletal: Positive for myalgias. Skin: Negative for itching and rash. Neurological: Positive for headaches. Negative for dizziness. Objective Physical Exam Vitals and nursing note reviewed. Constitutional: General: She is not in acute distress. Appearance: She is not diaphoretic. HENT: Head: Normocephalic and atraumatic. Jaw: No trismus, tenderness, swelling or pain on movement. Right Ear: Hearing, tympanic membrane, ear canal and external ear normal. No decreased hearing noted. No drainage, swelling or tenderness. No mastoid tenderness. Tympanic membrane is not perforated, erythematous or bulging. Left Ear: Hearing, tympanic membrane, ear canal and external ear normal. No decreased hearing noted. No drainage, swelling or tenderness. No mastoid tenderness. Tympanic membrane is not perforated, erythematous or bulging. Mouth/Throat: Lips: Comunas. Pharynx: Uvula midline. Posterior oropharyngeal erythema present. No pharyngeal swelling, oropharyngeal exudate or uvula swelling. Tonsils: No tonsillar exudate or tonsillar abscesses. Eyes: General: Right eye: No discharge. Left eye: No discharge. Conjunctiva/sclera: Conjunctivae normal. Pupils: Pupils are equal, round, and reactive to light. Cardiovascular: Rate and Rhythm: Normal rate and regular rhythm. Heart sounds: Normal heart sounds. Pulmonary: Effort: Pulmonary effort is normal. No respiratory distress. Breath sounds: Normal breath sounds. No stridor. No wheezing, rhonchi or rales. Chest: Chest wall: No tenderness. Abdominal: Palpations: Abdomen is soft. Tenderness: There is no abdominal tenderness. Musculoskeletal: General: No tenderness. Normal range of motion. Cervical back: Normal range of motion and neck supple. Lymphadenopathy: Head: Right side of head: No submental, submandibular, tonsillar, preauricular, posterior auricular or occipital adenopathy. Left side of head: No submental, submandibular, tonsillar, preauricular, posterior auricular or occipital adenopathy. Cervical: No cervical adenopathy. Right cervical: No superficial or posterior cervical adenopathy. Left cervical: No superficial or posterior cervical adenopathy. Skin: General: Ski (more content not included)... Normal [facility] Tobacco Screening.on 021 Tobacco use status [facility] b) No [facility] Work Phone: Vital Signs Date Time Vital Sign Value Performing Clinician Jennifer singh 06-15-2024 10:26-0500 Body height 156.8 cm Saeed Stentz PA-C Work Phone: [facility] 06-15-2024 10:26-0500 Body mass index (BMI) [Ratio] 24.71 kg/m2 Saeed Stentz PA-C Work Phone: [facility] 06-15-2024 10:26-0500 Body weight 60.78 kg Saeed Stentz PA-C Work Phone: [facility] 06-15-2024 10:26-0500 Diastolic blood pressure 78 mm[Hg] Saeed Stentz PA-C Work Phone: [facility] 06-15-2024 10:26-0500 Heart rate 78 /min Saeed Stentz PA-C Work Phone: [facility] 06-15-2024 10:26-0500 SaO2% (BldA) [Mass fraction] 99 % Saeed Stentz PA-C Work Phone: [facility] 06-15-2024 10:26-0500 Systolic blood pressure 128 mm[Hg] Saeed Stentz PA-C Work Phone: [facility] 06-13-2023 15:18-0500 Body height 156.8 cm Saeed Stentz PA-C Work Phone: [facility] 06-13-2023 15:18-0500 Body mass index (BMI) [Ratio] 24.34 kg/m2 Saeed Stentz PA-C Work Phone: [facility] 06-13-2023 15:18-0500 Body weight 59.88 kg Saeed Stentz PA-C Work Phone: [facility] 06-13-2023 15:18-0500 Diastolic blood pressure 90 mm[Hg] Saeed Stentz PA-C Work Phone: [facility] 06-13-2023 15:18-0500 Heart rate 100 /min Saeed Stentz PA-C Work Phone: [facility] 06-13-2023 15:18-0500 Systolic blood pressure 128 mm[Hg] Saeed Stentz PA-C Work Phone: [facility] 12-11-2022 10:03-0400 Body height 156.8 cm Dee Muñiz CAREER PLACEMENT SPECIALIST-FOREIGN EXCHANGE TRADER Work Phone: [facility] 12-11-2022 10:03-0400 Body mass index (BMI) [Ratio] 25.7 kg/m2 Dee Muñiz CAREER PLACEMENT SPECIALIST-FOREIGN EXCHANGE TRADER Work Phone: [facility] 12-11-2022 10:03-0400 Body weight 63.23 kg Dee Muñiz CAREER PLACEMENT SPECIALIST-FOREIGN EXCHANGE TRADER Work Phone: [facility] 12-11-2022 10:03-0400 Diastolic blood pressure 80 mm[Hg] Dee Muñiz CAREER PLACEMENT SPECIALIST-FOREIGN EXCHANGE TRADER Work Phone: [facility] 12-11-2022 10:03-0400 Heart rate 62 /min Dee Muñiz CAREER PLACEMENT SPECIALIST-FOREIGN EXCHANGE TRADER Work Phone: [facility] 12-11-2022 10:03-0400 Systolic blood pressure 118 mm[Hg] Dee Muñiz CAREER PLACEMENT SPECIALIST-FOREIGN EXCHANGE TRADER Work Phone: [facility] 07-05-2022 11:07-0500 Body height 157 cm Leslie Ngo [facility] 07-05-2022 11:07-0500 Body temperature 101.48 [degF] [facility] 07-05-2022 11:07-0500 Diastolic blood pressure 83 mm[Hg] Leslie Ngo [facility] 07-05-2022 11:07-0500 Heart rate 135 /[facility]22 11:07-0500 Respiratory rate 16 /min [facility] 07-05-2022 11:07-0500 SaO2% (BldA) [Mass fraction] 96 % Leslie Ngo [facility] 07-05-2022 11:07-0500 Systolic blood pressure 131 mm[Hg] [facility] 06-19-2022 15:53-0500 Body height 156.84 cm Dee Dickson Entiat Work Phone: [facility] Work Phone: 06-19-2022 15:53-0500 Body mass index (BMI) [Ratio] 26.63 kg/m2 Dee Dickson Antonino Work Phone: [facility] Work Phone: 06-19-2022 15:53-0500 Body surface area Derived from formula 1.66 m2 Dee Dickson Entiat Work Phone: [facility] Work Phone: 06-19-2022 15:53-0500 Body weight 65.52 kg Dee Dickson Antonino Work Phone: [facility] Work Phone: 06-19-2022 15:53-0500 Diastolic blood pressure 78 mm[Hg] Dee L Entiat Work Phone: [facility] Work Phone: 06-19-2022 15:53-0500 Heart rate 94 /min Dee L Entiat Work Phone: [facility] Work Phone: 06-19-2022 15:53-0500 Systolic blood pressure 118 mm[Hg] Dee Rayd Work Phone: [facility] Work Phone: 12-15-2021 13:37-0400 Body height 156.84 cm Dee Dickson Antonino Work Phone: [facility] Work Phone: 12-15-2021 13:37-0400 Body mass index (BMI) [Ratio] 27.75 kg/m2 Dee Dickson Antonino Work Phone: [facility] Work Phone: 12-15-2021 13:37-0400 Body surface area Derived from formula 1.69 m2 Dee Dickson Antonino Work Phone: [facility] Work Phone: 12-15-2021 13:37-0400 Body weight 68.27 kg Dee Rayd Work Phone: [facility] Work Phone: 12-15-2021 13:37-0400 Diastolic blood pressure 70 mm[Hg] Dee Dickson Entiat Work Phone: [facility] Work Phone: 12-15-2021 13:37-0400 Heart rate 72 /min Dee Dickson Antonino Work Phone: [facility] Work Phone: 12-15-2021 13:37-0400 Systolic blood pressure 114 mm[Hg] Dee L Entiat Work Phone: [facility] Work Phone: 11-16-2021 10:46-0400 Body height 156.84 cm Dee Dickson Entiat Work Phone: [facility] Work Phone: 11-16-2021 10:46-0400 Body mass index (BMI) [Ratio] 26.99 kg/m2 Dee Rayd Work Phone: [facility] Work Phone: 11-16-2021 10:46-0400 Body surface area Derived from formula 1.67 m2 Dee Rayd Work Phone: [facility] Work Phone: 11-16-2021 10:46-0400 Body weight 66.4 kg Dee Rayd Work Phone: [facility] Work Phone: 11-16-2021 10:46-0400 Diastolic blood pressure 66 mm[Hg] Dee Rayd Work Phone: [facility] Work Phone: 11-16-2021 10:46-0400 Heart rate 81 /min Dee Rayd Work Phone: [facility] Work Phone: 11-16-2021 10:46-0400 Systolic blood pressure 122 mm[Hg] Dee Rayd Work Phone: [facility] Work Phone: 02-07-2021 08:22-0400 Body height 156.84 cm Leslie Hoffman S Mallapareddi Work Phone: [facility] Work Phone: 02-07-2021 08:22-0400 Body mass index (BMI) [Ratio] 25.26 kg/m2 Leslie Nag S Mallapareddi Work Phone: [facility] Work Phone: 02-07-2021 08:22-0400 Body surface area Derived from formula 1.62 m2 Leslie Nag S Mallapareddi Work Phone: [facility] Work Phone: 02-07-2021 08:22-0400 Body weight 62.14 kg Leslieosiris Marinelli Mallapareddi Work Phone: [facility] Work Phone: 02-07-2021 08:22-0400 Diastolic blood pressure 60 mm[Hg] Leslieosiris Marinelli Mallapareddi Work Phone: [facility] Work Phone: 02-07-2021 08:22-0400 Heart rate 80 /min Leslie Marinelli Mallapareddi Work Phone: [facility] Work Phone: 02-07-2021 08:22-0400 Systolic blood pressure 108 mm[Hg] Leslie Marinelli Mallapareddi Work Phone: [facility] Work Phone: Encounters Encounter Date Encounter Type Care Provider Facility Start: 10-02-2024 End: 10-02-2024 ambulatory NANCY BUNN DO-NATHANIEL Facility:[facility] Start: 10-02-2024 End: 10-02-2024 ambulatory SAEED STENTZ Facility:[id number] Start: 09-01-2024 ambulatory SAEED STENTZ Facility: [facility] Start: 06-15-2024 End: 06-15-2024 Office outpatient visit 25 minutes Saeed Stentz PA-C Work Phone: [facility] Comment on above: Chronic idiopathic c onstipation (Primary Dx); Anxiety; Elevated LDL cholesterol level Start: 06-15-2024 End: 06-15-2024 ambulatory [facility] Start: 05-04-2024 End: 05-04-2024 ambulatory KEYANNA MARSHALL Facility:[facility] Start: 06-29-2023 End: 06-30-2023 ambulatory [facility] Start: 06-13-2023 End: 06-13-2023 Office outpatient new 30 minutes Saeed Stentz PA-C Work Phone: [facility] Comment on above: Chronic idiopathic c onstipation (Primary Dx); Screening for cholesterol level; Screening for thyroid disorder; Body mass index (BMI) of 24.0 to 24.9 in adult; Anxiety Start: 12-11-2022 End: 12-11-2022 Office outpatient visit 15 minutes Dee Muñiz CAREER PLACEMENT SPECIALIST-FOREIGN EXCHANGE TRADER Work Phone: [facility] Comment on above: Anxiety Start: 07-20-2022 End: 07-21-2022 ambulatory NANCY Arndt ONI DO-FACOG Facility:[facility] Start: 07-05-2022 End: 07-05-2022 Emergency department patient visit Gillian Mantilla [facility] Start: 06-22-2022 ambulatory MYLES MCDONNELL Facility :[facility] Start: 06-22-2022 End: 06-23-2022 ambulatory MYLES MCDONNELL Facility:[facility] Start: 06-19-2022 Office outpatient vi sit 15 minutes Dee Muñiz Work Phone: [facility] Work Phone: Start: 06-19-[address] Mrs[address] DEE WATKINS ANTONINO Fa cility:[id number] Start: 04-24-2022 Patient encounter procedure Dee Muñiz Work Phone: [facility] Work Phone: Start: 04-24-[address] Mrs[address] DEE WATKINS ANTONINO Fa cility:[id number] Start: 12-15-2021 Office outpatient vi sit 15 minutes Dee Muñiz Work Phone: [facility] Work Phone: Start: 12-15-[address] DEE WATKINS ANTONINO Fa cility:[id number] Start: 12-11-2021 Rx Renewal Dee Muñiz Work Phone: [facility] Work Phone: Start: 11-28-2021 ambulatory MYLES Kailey MCDONNELL Facility :[facility] Start: 11-16-2021 Office outpatient vi sit 15 minutes Dee Muñiz Work Phone: [facility] Work Phone: Start: 11-16-[address] Mrs[address] DEE MUÑIZ Fa cility:[id number] Start: 02-07-2021 Office outpatient vi sit 25 minutes Leslie Ngo Work Phone: [facility] Work Phone: Start: 03-18-2018 End: 03-18-2018 Patient encounter procedure [facility] Facility:[facility] Start: 03-04-2018 End: 03-05-2018 Patient encounter procedure Yoshi Hollis Facility:[facility] Start: 09-18-2017 End: 09-19-2017 Patient encounter procedure Mono Early Kiodalis Facility:[facility] Procedures Date Procedure Procedure Detail Performing Clinician Start: 05-04-2024 Mammography Saeed Dilan ntz PA-C Work Phone: Start: 09-12-2023 Microscopic observat ion [Identifier] in Cervix by Cyto stain Saeed Stentz PA-C Work Phone: Start: 06-29-2023 CBC panel - Blood by Automated count SAEED STENTZ Start: 06-29-2023 Comprehensive metabo lic 2000 panel - Serum or Plasma SAEED STENTZ Start: 06-29-2023 Lipid panel SAEED DILAN NTZ Start: 06-29-2023 TSH WITH REFLEX TO F REE T4 IF ABNORMAL SAEED STENTZ Start: 06-29-2023 Lipid 1996 panel - S kelsey or Plasma Saeed Stentz PA-C Work Phone: Start: 05-01-2021 Microscopic observat ion [Identifier] in Cervix by Cyto stain Dee Antonino CAREER PLACEMENT SPECIALIST-FOREIGN EXCHANGE TRADER Work Phone: Lumpectomy of breast Leslie Ngo Work Phone: Comment on above: left breast 2006; Plan of Treatment Date Care Activity Detail Author Start: 2033 Zoster Vaccines (1 of 2) Zoste r Vaccines (1 of 2) [facility] Start: 06-29-2028 Lipid panel Lipid Panel [facility] Start: 09-11-2026 Screening for malign ant neoplasm of cervix [facility] Start: 05-04-2025 Screening for malign ant neoplasm of breast Mammogram [facility] Start: 05-01-2024 Screening for malign ant neoplasm of cervix [facility] Start: 01-26-2024 COVID-19 Vaccine ( season) COVID-19 Vaccine ( season) [facility] Start: 01-26-2024 Influenza vaccination Influenza Vacc ine (#1) [facility] Start: 06-13-2023 End: 06-13-2023 Patient encounter procedure 06/13/2023 3:30 PM EST Office Visit [facility] [address] [place] [id number] Dee Muñiz, CAREER PLACEMENT SPECIALIST-FOREIGN EXCHANGE TRADER [address] [facility] [place][note 2], [address] [place] [address] [facility] Start: 06-13-2023 End: 06-13-2024 CBC panel - Blood by Automated count CBC Lab Routine Body mass index (BMI) of 24.0 to 24.9 in adult Expected: 06/13/2023 (Approximate), Expires: 06/13/2024 [facility] Service Area Work Phone: Comment on above: Expected: 06/13/2023 (Approximate), Expires: 06/13/2024 Start: 06-13-2023 End: 06-13-2024 Comprehensive metabolic 2000 panel - Serum or Plasma Comprehensive Metabolic Panel Lab Routine Body mass index (BMI) of 24.0 to 24.9 in adult Expected: 06/13/2023 (Approximate), Expires: 06/13/2024 [facility] Work Phone: Comment on above: Expected: 06/13/2023 (Approximate), Expires: 06/13/2024 Start: 06-13-2023 End: 06-13-2024 Lipid 1996 panel - Serum or Plasma Lipid Panel Lab Routine Screening for cholesterol level Expected: 06/13/2023 (Approximate), Expires: 06/13/2024 [facility] Work Phone: Comment on above: Expected: 06/13/2023 (Approximate), Expires: 06/13/2024 Start: 06-13-2023 End: 06-13-2024 TSH with reflex to Free T4 if abnormal TSH with reflex to Free T4 if abnormal Lab Routine Screening for thyroid disorder Expected: 06/13/2023 (Approximate), Expires: 06/13/2024 [facility] Work Phone: Comment on above: Expected: 06/13/2023 (Approximate), Expires: 06/13/2024 Start: 2023 Screening for malign ant neoplasm of breast Mammogram [facility] Start: 03-21-2023 EPV, Provider: Dee Muñiz, Status: Pen, Time: 4:00 PM EPV, Provider: Dee Muñiz, Status: Pen, Time: 4:00 PM [facility] Work Phone: Start: 03-21-2023 Patient encounter procedure Outpatient [facility] Start: 21-Mar-2023 16:00 Dee Muñiz L Intent [facility] Start: 01-25-2023 Influenza vaccination Influenza Vacc ine (#1) [facility] Start: 07-12-2022 COVID-19 Vaccine (5 - Booster for Moderna series) COVID-19 Vaccine (5 - Booster for Moderna series) [facility] Start: 07-12-2022 COVID-19 Vaccine (5 - Moderna series) COVID-19 Vaccine (5 - Moderna series) [facility] Start: 06-19-2022 EPV, Provider: Dee Muñiz, Status: Pen, Time: 4:00 PM EPV, Provider: Dee Muñiz, Status: Pen, Time: 4:00 PM [facility] Work Phone: Start: 12-15-2021 FUV, Provider: Dee Muñiz, Status: Pen, Time: 1:30 PM FUV, Provider: Dee Muñiz, Status: Pen, Time: 1:30 PM [facility] Work Phone: Start: 10-29-2021 DTaP/Tdap/Td Vaccine s (2 - Td or Tdap) DTaP/Tdap/Td Vaccines (2 - Td or Tdap) [facility] Start: 03-02-2021 FUV, Provider: Trish Adam, Status: Pen, Time: 4:15 PM FUV, Provider: Trish Adam, Status: Pen, Time: 4:15 PM [facility] Work Phone: Start: 2005 DTaP/Tdap/Td Vaccine s (1 - Tdap) DTaP/Tdap/Td Vaccines (1 - Tdap) [facility] Start: 2004 Screening for malign ant neoplasm of cervix HPV/Cotest [facility] Start: 2002 Hepatitis B Vaccines (1 of 3 - 19+ 3-dose series) Hepatitis B Vaccines (1 of 3 - 19+ 3-dose series) [facility] Start: 2001 Diabetes mellitus screening Diabetes Screening [facility] Start: 2001 Hepatitis C screening Hepatitis C Sc reening [facility] Start: 1996 Varicella vaccination Varicell a Vaccines (1 of 2 - 13+ 2-dose series) [facility] Start: 1984 MMR Vaccines (1 of 1 - Standard series) MMR Vaccines (1 of 1 - Standard series) [facility] Start: 1984 Varicella vaccination Varicell a Vaccines (1 of 2 - 2-dose childhood series) [facility] Start: 1983 Hepatitis B Vaccines (1 of 3 - 3-dose series) Hepatitis B Vaccines (1 of 3 - 3-dose series) [facility] Start: 1983 HIV screening HIV Screening [facility] Start: 1983 Lipid panel Lipid Panel [facility] Start: 1983 Yearly Adult Physical Yearly Adult P hysical [facility] Immunizations Immunization Date Immunization Notes Care Provider Camacho galindo 06-13-2023 influenza, injectabl e, quadrivalent, preservative free Saeed Shi PA-C Work Phone: [facility] Work Phone: 06-13-2023 influenza virus vaccine, unspecified formulation Saeed Shi PA-C Work Phone: [facility] Work Phone: 05-17-2022 Pfizer COVID-19 Vac Bivalent 30 MCG/0.3ML Intramuscular Suspension Dee Muñiz Work Phone: [facility] Work Phone: 04-24-2022 influenza, injectabl e, quadrivalent, preservative free; Translations: [Flulaval Quadrivalent 0.5 ML Intramuscular Suspension Prefilled Syringe] Dee Muñiz Work Phone: [facility] Work Phone: Comment on above: Series: 04-16-2021 Moderna COVID-19 Vaccine 100 MCG/0.5ML Intramuscular Suspension Dee Rayd Work Phone: [facility] Work Phone: 02-07-2021 influenza, injectabl e, quadrivalent, contains preservative Dee Rayd CAREER PLACEMENT SPECIALIST-FOREIGN EXCHANGE TRADER Work Phone: [facility] Work Phone: 02-07-2021 influenza, injectabl e, quadrivalent, preservative free; Translations: [Flulaval Quadrivalent 0.5 ML Intramuscular Suspension Prefilled Syringe] Leslie Marinelli Friendsuranceapareddi Work Phone: [facility] Work Phone: Comment on above: Series: 02-07-2021 influenza, seasonal, injectable Leslie Dalton S Mallapareddi Work Phone: [facility] Work Phone: Comment on above: Series: 02-07-2021 influenza virus vaccine, unspecified formulation Dee Rayd CAREER PLACEMENT SPECIALIST-FOREIGN EXCHANGE TRADER Work Phone: [facility] Work Phone: 09-21-2020 Moderna SARS-CoV-2 Vaccination Dee Rayd CAREER PLACEMENT SPECIALIST-FOREIGN EXCHANGE TRADER Work Phone: [facility] Work Phone: 08-19-2020 Moderna COVID-19 Vaccine 100 MCG/0.5ML Intramuscular Suspension Leslieosiris Tejada Work Phone: [facility] Work Phone: 07-22-2020 Moderna COVID-19 Vaccine 100 MCG/0.5ML Intramuscular Suspension Leslie [facility] Work Phone: [facility] Work Phone: 03-29-2020 influenza, injectabl e, quadrivalent, contains preservative Dee Muñiz CAREER PLACEMENT SPECIALIST-FOREIGN EXCHANGE TRADER Work Phone: [facility] Work Phone: 03-29-2020 influenza, injectabl e, quadrivalent, preservative free; Translations: [Flulaval Quadrivalent 0.5 ML Intramuscular Suspension Prefilled Syringe] [facility] Work Phone: [facility] Work Phone: Comment on above: Series: 04-27-2019 influenza, injectabl e, quadrivalent, preservative free Leslie [facility] Work Phone: [facility] Work Phone: Comment on above: Series: 03-04-2018 influenza, injectabl e, quadrivalent, preservative free; Translations: [Influenza, injectable, quadrivalent, preservative free] Leslie [facility] Ngo Work Phone: [facility] Work Phone: Comment on above: Series: 10-18-2015 RHO(D) immune globulin- IV or IM Saeed Shi PA-C Work Phone: [facility] Work Phone: 03-08-2015 influenza virus vaccine, unspecified formulation Saeed Shi PA-C Work Phone: [facility] 03-08-2015 influenza virus vaccine, whole virus Leslie Ngo Work Phone: [facility] Work Phone: 10-30-2011 tetanus toxoid, reduced diphtheria toxoid, and acellular pertussis vaccine, adsorbed Saeed Stentz PA-C Work Phone: [facility] Work Phone: 10-29-2011 RHO(D) immune globulin- IV or IM Saeed Stentz PA-C Work Phone: [facility] Work Phone: Payers Date Payer Category Payer Self-pay 2021 [facility] [id number] 2021 Unknown [id number] 2008 Unknown 1983 Unknown [id number] [id number]. 1983 Unknown [id number] [id number]. 717 1983 Unknown [id number] 2.16.840.1.357583.3.579.2. 7 1983 Unknown [id number] 2.16.840.1.678227.3.579.2. 1069 1983 Unknown [id number] 2.16.840.1.486033.3.579.2. 356 1983 Unknown [id number] 2.16.840.1.056641.3.579.2. 356 1983 Unknown [id number] 2.16.840.1.803309.3.579.2. 356 1983 Unknown [id number] 2.16.840.1.248464.3.579.2. 356 1983 Unknown [id number] 2.16.840.1.530226.3.579.2. 159 1983 Unknown [id number] 2.16.840.1.755764.3.579.2. 159 1983 Unknown [id number] 2.16.840.1.991062.3.579.2. 159 1983 Unknown [id number] 2.16.840.1.444262.3.579.2. 159 1983 Unknown [id number] 2.16.840.1.130764.3.579.2. 1245 1983 Unknown [id number] 2.16.840.1.410810.3.579.2. 1244 1983 Unknown [id number] 2.16.840.1.798621.3.579.2. 159 1983 Unknown [id number] 2.16.840.1.925608.3.579.2. 159 1983 Unknown [id number] 2.16.840.1.007850.3.579.2. 159 Unknown [id number] 2.16.840.1.128466.3.579.2. 462 Social History Date Type Detail Facility Start: 12-11-2022 End: 06-13-2023 Never a smoker Never a smoker [facility] Work Phone: Tobacco smoking consumption unknown [facility] Start: 12-11-2022 Tobacco smoking status NHIS Never smoked tobacco [facility] Work Phone: Start: 12-11-2022 Tobacco use and exposure Smokeless tobacco non-user [facility] Work Phone: Start: 12-11-2022 End: 06-15-2024 Alcohol intake Lifetime non-drinker (finding) [facility] Work Phone: Start: 12-11-2022 End: 06-13-2023 Tobacco use panel [facility] Work Phone: Start: 1985 [facility] Start: 12-01-2022 End: 06-15-2024 Exposure to SARS-CoV-2 (event) Not sure [facility] Clinical Notes 07-25-2021 to 06-15-2024 Saeed Shi PA-C - 06/15/2024 10:30 AM ESTPatient InstructionsJudragan Shi PA-C - 06/13/2023 3:15 PM TORIE Yang - 12/11/2022 10:00 AM EDT Note Date & Type Note Facility 06-15-2024 History of Presen t illness Narrative Subjective Patient ID: Deana Wylie is a 39 y.o. female who presents for pt here for 1 yr med check . HPI ANXIETY: Stable on Wellbutrin 300mg SR, no SE. Sleep is good, appetite good. MARKEL 0, PHQ 0. CONSTIPATION: Chronic, no abdominal pain. 3-4 days before BM. Taking fiber pills currently. 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 No fam hx of colon cancer. Review of Systems Constitutional: Negative. Respiratory: Negative. Cardiovascular: Negative. Gastrointestinal: Negative. Objective BP 128/78 Pulse 78 Ht 1.568 m (5' 1.75) Wt 60.8 kg (134 lb) SpO2 99% BMI 24.71 kg/m Physical Exam Constitutional: General: She is not in acute distress. Appearance: Normal appearance. She is not ill-appearing. HENT: Head: Normocephalic and atraumatic. Eyes: Extraocular Movements: Extraocular movements intact. Conjunctiva/sclera: Conjunctivae normal. Cardiovascular: Rate and Rhythm: Normal rate. Pulmonary: Effort: Pulmonary effort is normal. Abdominal: General: There is no distension. Musculoskeletal: General: Normal range of motion. Cervical back: Normal range of motion. Skin: General: Skin is warm and dry. Neurological: General: No focal deficit present. Mental Status: She is alert and oriented to person, place, and time. Psychiatric: Mood and Affect: Mood normal. Behavior: Behavior normal. Thought Content: Thought content normal. Judgment: Judgment normal. Assessment/Plan Labs last year mainly unremarkable, would like to hold on labs for now. Advised mag citrate constipation. If not effective she will call me and may consider Linzess. Refilled Wellbutrin, no changes. Follow up 1 year or sooner prn. documented in this encounter [facility] Work Phone: 06-15-2024 Instructions Saeed Shi PA-C - 06/15/2024 10:30 AM EST Look into magnesium citrate supplement for constipation. documented in this encounter [facility] Work Phone: 06-13-2023 History of Presen t illness Narrative Subjective Patient ID: Deana Wylie is a 38 y.o. female who presents for pt here for med check,and flu shot . HPI ANXIETY: Stable on Wellbutrin 300mg SR, no SE. Sleep is good, appetite good. MARKEL 0, PHQ 0. CONSTIPATION: Chronic, no abdominal pain. 3-4 days before BM. Taking fiber pills currently. 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 No fam hx of colon cancer. Review of Systems Constitutional: Negative. Respiratory: Negative. Cardiovascular: Negative. Gastrointestinal: Positive for constipation. Objective BP 128/90 Pulse 100 Ht 1.568 m (5' 1.75) Wt 59.9 kg (132 lb) BMI 24.34 kg/m Physical Exam Constitutional: General: She is not in acute distress. Appearance: Normal appearance. She is not ill-appearing or toxic-appearing. HENT: Head: Normocephalic and atraumatic. Eyes: Extraocular Movements: Extraocular movements intact. Conjunctiva/sclera: Conjunctivae normal. Cardiovascular: Rate and Rhythm: Normal rate and regular rhythm. Heart sounds: Normal heart sounds. No murmur heard. No gallop. Pulmonary: Effort: Pulmonary effort is normal. Breath sounds: Normal breath sounds. No stridor. No wheezing. Abdominal: General: There is no distension. Tenderness: There is no right CVA tenderness or left CVA tenderness. Musculoskeletal: General: Normal range of motion. Cervical back: Neck supple. Skin: General: Skin is warm and dry. Findings: No erythema or rash. Neurological: General: No focal deficit present. Mental Status: She is alert and oriented to person, place, and time. Psychiatric: Mood and Affect: Mood normal. Behavior: Behavior normal. Thought Content: Thought content normal. Judgment: Judgment normal. Assessment/Plan Fasting labs soon. Continue Wellbutrin. Rx docusate prn. Follow up 1 year or sooner prn. documented in this encounter [facility] Work Phone: 12-11-2022 History of Presen t illness Narrative Subjective Patient ID: Deana Wylie is a 37 y.o. female who presents for Anxiety (Needs refills). Anxiety Patient is here for evaluation of anxiety. She has the following anxiety symptoms: none. Symptoms controlled. Symptoms have been controlled since that time. She denies current suicidal and homicidal ideation. Family history significant for no psychiatric illness. Possible organic causes contributing are: none. Risk factors: none Previous treatment includes medication Wellbutrin. She complains of the following medication side effects: none. BM improved on average every other day Is taking fiber daily Drinks plenty of fluid Taking daily probiotic Denies any acute health concerns Weight is stable lost 5 lb since 05/2022 Review of Systems Constitutional: Negative for activity change and fever. Respiratory: Negative for chest tightness and shortness of breath. Cardiovascular: Negative for chest pain. Gastrointestinal: Positive for constipation. Negative for diarrhea, nausea and vomiting. Musculoskeletal: Negative for arthralgias and myalgias. Neurological: Negative for dizziness, light-headedness and headaches. Psychiatric/Behavioral: Negative for sleep disturbance. The patient is not nervous/anxious. Objective BP 118/80 (Patient Position: Sitting) Pulse 62 Ht 1.568 m (5' 1.75) Wt 63.2 kg (139 lb 6.4 oz) BMI 25.70 kg/m Physical Exam Constitutional: General: She is not in acute distress. Appearance: Normal appearance. She is normal weight. Cardiovascular: Rate and Rhythm: Normal rate and regular rhythm. Pulmonary: Effort: Pulmonary effort is normal. Breath sounds: Normal breath sounds. Abdominal: General: Bowel sounds are normal. Palpations: Abdomen is soft. Tenderness: There is no abdominal tenderness. Skin: General: Skin is warm and dry. Neurological: Mental Status: She is alert and oriented to person, place, and time. Assessment/Plan Diagnoses and all orders for this visit: Anxiety - buPROPion SR (Wellbutrin SR) 150 mg 12 hr tablet; Take 1 tablet (150 mg) by mouth every 12 hours. - Controlled on current treatment Other orders - Follow Up In Primary Care - Health Maintenance; Future documented in this encounter [facility] Work Phone: 08-16-2021 History of Presen t illness Narrative Deana is a 36 yo female here today with complaints of increased anxiety. She has attempted lifestyle changes including diet, exercise, and appropriate sleep, however anxiety is worsening.Anxiety has worsened over last few months, was started on progesterone in April, has has a 10 lb weight gain. Feels as though the weight gain is caused by hormone and/or the anxiety.She would like to start on medication at this time. -[facility] Work Phone: 07-25-2021 Influenza virus A and B RNA and SARS-CoV-2 (COVID-19) N gene panel KAE+probe (Resp) COVID 19 RESULT: SARS-CoV-2 (Agent of COVID-19) Not Detected by RT-PCR or equivalent method. grethcen [id number]_[employer] (GLAD[employer])_EUA This test has been authorized by the FDA under an Emergency Use Authorization (EUA). INFLUENZA A PCR: Negative for Influenza A by RT-PCR INFLUENZA B PCR: Negative for Influenza B by RT-PCR [facility] Comment on above: Performed By: #### [id number] #### [facility] CLIA [id number] [address] [place] [address] [place] 07-25-2021 Note HNO ID: [id number] Author: Abhi Haider APRN.FOREIGN EXCHANGE TRADER Service: ? Author Type: Nurse Practitioner Type: Progress Notes Filed: 07/25/2021 9:30 AM Note Text: Subjective HPI Nontoxic-appearing female presents urgent care chief complaint sore throat. Duration of sore throat 2 to 3 days. Associated symptoms sore throat headache body aches. States presents today due to new onset body aches. Denies any outside the home sick contacts. 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 States her children at home have colds. No OTC medication use today. Denies any significant pain. Denies any fever chills productive cough chest pain shortness of breath nausea vomiting abdominal pain rashes difficulty swallowing decreased range of motion neck trismus. Past medical history prescription medication use allergies reviewed. Is vaccine against COVID-19. Did have COVID-14 April 2020. .Patient presents with: Sore Throat: ST, [place] and bodyaches x 2 days PAST MEDICAL HISTORY Diagnosis Date - Fibrocystic breast disease - PCOS (polycystic ovarian syndrome) PAST SURGICAL HISTORY Procedure Laterality Date - BREAST LUMPECTOMY HX Left 2006 - VAGINAL DELIVERY W/ANTE/POST CARE 10/28/2011 ALLERGIES Erythromycin MEDICATIONS ibuprofen (MOTRIN) 600 mg tablet Take 1 tablet by mouth every 6 hours as needed. PNV COMBO#47/IRON/FA #1/DHA (PNV-DHA ORAL) Take 1 tablet by mouth once daily. FAMILY HISTORY Problem Relation Age of Onset - Hypertension Father - Breast Cancer Maternal Grandmother - Cancer Paternal Grandfather brain - Diabetes Paternal Grandfather - Ovarian cancer Paternal Grandmother Social History Tobacco Use - Smoking status: Never Smoker - Smokeless tobacco: Never Used Substance Use Topics - Alcohol use: No - Drug use: No BP 128/82 Pulse 89 Temp 36.9 ?C (98.4 ?F) (Tympanic) Resp 18 Wt 65.6 kg (144 lb 9.6 oz) LMP 01/10/2015 SpO2 98% BMI 26.45 kg/m? Review of Systems Constitutional: Positive for malaise/fatigue. Negative for chills and fever. HENT: Positive for congestion and sore throat. Negative for ear discharge, ear pain and sinus pain. Eyes: Negative for blurred vision, pain, discharge and redness. Respiratory: Negative for cough, hemoptysis, sputum production, shortness of breath, wheezing and stridor. Cardiovascular: Negative for chest pain. Gastrointestinal: Negative for abdominal pain, diarrhea, nausea and vomiting. Musculoskeletal: Positive for myalgias. Skin: Negative for itching and rash. Neurological: Positive for headaches. Negative for dizziness. Objective Physical Exam Vitals and nursing note reviewed. Constitutional: General: She is not in acute distress. Appearance: She is not diaphoretic. HENT: Head: Normocephalic and atraumatic. Jaw: No trismus, tenderness, swelling or pain on movement. Right Ear: Hearing, tympanic membrane, ear canal and external ear normal. No decreased hearing noted. No drainage, swelling or tenderness. No mastoid tenderness. Tympanic membrane is not perforated, erythematous or bulging. Left Ear: Hearing, tympanic membrane, ear canal and external ear normal. No decreased hearing noted. No drainage, swelling or tenderness. No mastoid tenderness. Tympanic membrane is not perforated, erythematous or bulging. Mouth/Throat: Lips: Comunas. Pharynx: Uvula midline. Posterior oropharyngeal erythema present. No pharyngeal swelling, oropharyngeal exudate or uvula swelling. Tonsils: No tonsillar exudate or tonsillar abscesses. Eyes: General: Right eye: No discharge. Left eye: No discharge. Conjunctiva/sclera: Conjunctivae normal. Pupils: Pupils are equal, round, and reactive to light. Cardiovascular: Rate and Rhythm: Normal rate and regular rhythm. Heart sounds: Normal heart sounds. Pulmonary: Effort: Pulmonary effort is normal. No respiratory distress. Breath sounds: Normal breath sounds. No stridor. No wheezing, rhonchi or rales. Chest: Chest wall: No tenderness. Abdominal: Palpations: Abdomen is soft. Tenderness: There is no abdominal tenderness. Musculoskeletal: General: No tenderness. Normal range of motion. Cervical back: Normal range of motion and neck supple. Lymphadenopathy: Head: Right side of head: No submental, submandibular, tonsillar, preauricular, posterior auricular or occipital adenopathy. Left side of head: No submental, submandibular, tonsillar, preauricular, posterior auricular or occipital adenopathy. Cervical: No cervical adenopathy. Right cervical: No superficial or posterior cervical adenopathy. Left cervical: No superficial or posterior cervical adenopathy. Skin: General: Skin is warm and dry. Findings: No rash. Neurological: Mental Status: She is alert and oriented to person, place, and time. ASSESSMENT/PLAN: 1. Pharyngitis, unspecified etiology - ICD9: 462, ICD10: J02.9 (primary diagnosis) - STREP A MOLECULAR (POC) 2. Viral illness - (more content not included)... [facility] Evaluation note Diagnosis Anxiety Anxiety state, unspecified documented in this encounter [facility] Work Phone: Evaluation note* Diagnosis Chronic idiopathic constipation- Primary Unspecified constipation Screening for cholesterol level Screening for thyroid disorder Body mass index (BMI) of 24.0 to 24.9 in adult Anxiety Anxiety state, unspecified documented in this encounter [facility] Work Phone: Evaluation note* Diagnosis Chronic idiopathic constipation- Primary Unspecified constipation Anxiety Anxiety state, unspecified Elevated LDL cholesterol level documented in this encounter [facility] Work Phone: History of Present illness Narrative* DEANA WYLIE presents with complaints of anxiety. * Associated symptoms include difficulty concentrating, excessive worry, fatigue, irritability, muscle tension, chest pain and headaches, but no insomnia, no nervousness, no panic attacks, no sweaty palms, no sleep disruption, no choking sensation, no diaphoresis, no dizziness, no fainting, no flushing, no gastrointestinal complaints, no heart palpitations, no hyperventilation, no muscle pain, no muscle spasms, no paresthesia, no racing heart, no shortness of breath, no sighing respiration and notremors. * DEANA WYLIE is being seen for an initial evaluation of constipation. This evaluation is for recurrent constipation. Symptoms: infrequent stools, hard stools, small caliber stools and incomplete evacuation, but no straining at stools and no abdominal pain. The patient is currently experiencing symptoms. Symptom onset was gradual has always had issues but has worsened over the last 6 months. The symptoms occur occasionally. Stool frequency has been 2-3 times per week. Most recent stool was 1 day(s) ago. She describes this as mild and worsening. Exacerbating factors: cheese, but not exacerbatedby calcium channel blockers, not exacerbated by antidepressants, not exacerbated by iron supplements and not exacerbated by calcium supplements. Relieving factors: 6-8 cups of water per day, but not relieved by fiber supplements. Associated symptoms: bloating, but no chills, no fever, no anorexia, no nausea, no vomiting, no weight loss, no anal leakage, no rectal bleeding, no urinary symptoms andno weakness. Current treatment includes fiber supplements and probiotics. By report, there is good compliance with treatment, good tolerance of treatment and poor symptom control. Episodes of constipation first began year(s) ago. Pertinent medical history: chronic constipation, but no chronic disability, no hypothyroidism, no multiple sclerosis, no colon cancer, no psychiatric disease, no diabetes, no hypokalemia and no hypercalcemia. Risk factors: sedentary lifestyle, inadequate fluid intake and family history of constipation. * Deana is here for new complaints of anxiety and chronic constipation. She reports that she had COVIDin March 2020 and since then she has felt increased anxiety about veena the virus again. She reports feeling nervous anxious or on edge, not being able to stop or control worrying, worrying too much about different things and becoming easily irritable over half of the days over the past 2 weeks. She also reports trouble relaxing about 25% of the days over the last 2 weeks her sleep is good, but reports feeling tired and having little energy, trouble concentrating and feeling down depressed and hopeless about 25% of the time. She has never taken anything for anxiety nor has she met with a counselor or psychologist in the past. Denies SI or HI. 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 * She also complains of chronic constipation that has gotten progressively worse over the last 6 months. She reports going 3 to 4 days in between bowel movements. She does not have to strain. Takes a probiotic and fiber supplements to help with symptoms. Has no abdominal pain. No bloody stools has not noticed any food triggers that worsen her symptoms. She has not tried taking any stool softeners. Only drinks about six 8 ounce glasses of water per day. [facility] Work Phone: History of Present illness Narrative* Deana is a 36 yo female here to follow up on Anxiety. 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 She is now on Wellbutrin twice a day. She states she has had an increase in headaches however she isn't sure if it is from new the Wellbutrin or from stopping the hormone. She states headache are infrequent and tolerable at this time. * She reports constipation is improving but still having some days of constipation, is taking Metamucil tablets in AM and a daily probiotic. * Denies any other Health concerns [facility] Work Phone: History of Present illness Narrative* Deana is a 37 yo female, here today for follow up on anxiety * She reports anxiety is same, well controlled on current medication * States she feels great * continues to have occasional constipation, take daily fiber * no change in appetite, * No acute health concerns today [facility] Work Phone: Reason for referral (narrative)* Consultation (Routine) - Authorized Specialty Diagnoses / Procedures Referred By Darion blanco Referred To Contact Primary Care Procedures Follow Up In Primary Care - Health Maintenance Dee Muñiz APRN-CNP [address] [facility] [place][note 2], [place] [address] Referral ID Status Reason Start Date Expiration Date V isits Requested Visits Authorized [id number] Authorized 12/11/2022 06/09/2023 1 1 [facility] Work Phone: Reason for referral (narrative)* Consultation (Routine) - Authorized Specialty Diagnoses / Procedures Referred By Contac t Referred To Contact Primary Care Procedures Follow Up In Primary Care - Established Saeed Shi PA-C [address] [facility] [place][note 2], [address] [address] Referral ID Status Reason Start Date Expiration Date V isits Requested Visits Authorized [id number] Authorized 06/13/2023 06/12/2024 1 1 [facility] Work Phone: Reason for referral (narrative)* Consultation (Routine) - Authorized Specialty Diagnoses / Procedures Referred By Darion t Referred To Contact Primary Care Procedures Follow Up In Primary Care - Established Saeed Shi PA-C [address] [facility] [place][note 2], [place] [id number] Phone: tel: fax: Referral ID Status Reason Start Date Expiration Date V isits Requested Visits Authorized [id number] Authorized 06/15/2024 06/15/2025 1 1 [facility] Work Phone: Summary Purpose Family History No Family History Records FoundUnknown Family Member Name Dates Details Family history of hyperlipid emia: Mother, Father(V18.19, Z83.438) Status:Active Family history of hypertensi on: Father(V17.49, Z82.49) Status:Active Family history of malignant melanoma: Father, Paternal Grandfather(V16.8, Z80.8) Status:Active Family history of malignant neoplasm of ovary: Paternal Grandmother(V16.41, Z80.41) Status:Active Family history of malignant neoplasm of stomach: Maternal Grandfather(V16.0, Z80.0) Status:Active Family history of malignant neoplasm of breast: Maternal Grandmother(V16.3, Z80.3) Status:Active Unknown Family Member Name Dates Details Family history of hyperlipid emia: Mother, Father(V18.19, Z83.438) Status:Active Family history of hypertensi on: Father(V17.49, Z82.49) Status:Active Family history of malignant melanoma: Father, Paternal Grandfather(V16.8, Z80.8) Status:Active Family history of malignant neoplasm of ovary: Paternal Grandmother(V16.41, Z80.41) Status:Active Family history of malignant neoplasm of stomach: Maternal Grandfather(V16.0, Z80.0) Status:Active Family history of malignant neoplasm of breast: Maternal Grandmother(V16.3, Z80.3) Status:Active Unknown Family Member Name Dates Details Family history of hyperlipid emia: Mother, Father(V18.19, Z83.438) Status:Active Family history of hypertensi on: Father(V17.49, Z82.49) Status:Active Family history of malignant melanoma: Father, Paternal Grandfather(V16.8, Z80.8) Status:Active Family history of malignant neoplasm of ovary: Paternal Grandmother(V16.41, Z80.41) Status:Active Family history of malignant neoplasm of stomach: Maternal Grandfather(V16.0, Z80.0) Status:Active Family history of malignant neoplasm of breast: Maternal Grandmother(V16.3, Z80.3) Status:Active Unknown Family Member Name Dates Details Family history of hyperlipid emia: Mother, Father(V18.19, Z83.438) Status:Active Family history of hypertensi on: Father(V17.49, Z82.49) Status:Active Family history of malignant melanoma: Father, Paternal Grandfather(V16.8, Z80.8) Status:Active Family history of malignant neoplasm of ovary: Paternal Grandmother(V16.41, Z80.41) Status:Active Family history of malignant neoplasm of stomach: Maternal Grandfather(V16.0, Z80.0) Status:Active Family history of malignant neoplasm of breast: Maternal Grandmother(V16.3, Z80.3) Status:Active Unknown Family Member Name Dates Details Family history of malignant neoplasm of breast: Maternal Grandmother(V16.3, Z80.3) Status:Active Family history of malignant neoplasm of stomach: Maternal Grandfather(V16.0, Z80.0) Status:Active Family history of malignant neoplasm of ovary: Paternal Grandmother(V16.41, Z80.41) Status:Active Family history of malignant melanoma: Father, Paternal Grandfather(V16.8, Z80.8) Status:Active Family history of hypertensi on: Father(V17.49, Z82.49) Status:Active Family history of hyperlipid emia: Mother, Father(V18.19, Z83.438) Status:Active Unknown Family Member Name Dates Details Family history of hyperlipid emia: Mother, Father(V18.19, Z83.438) Status:Active Family history of hypertensi on: Father(V17.49, Z82.49) Status:Active Family history of malignant melanoma: Father, Paternal Grandfather(V16.8, Z80.8) Status:Active Family history of malignant neoplasm of ovary: Paternal Grandmother(V16.41, Z80.41) Status:Active Family history of malignant neoplasm of stomach: Maternal Grandfather(V16.0, Z80.0) Status:Active Family history of malignant neoplasm of breast: Maternal Grandmother(V16.3, Z80.3) Status:Active Advance Directives No Advanced Directives Records FoundNo Advanced Directives Records FoundNo Advanced Directives Records FoundNo Advanced Directives Records FoundNo Advanced Directives Records FoundNo Advanced Directives Records FoundNo Advanced Directives Records FoundNo Advanced Directives Records FoundNo Advanced Directives Records FoundNo Advanced Directives Records Found Chief Complaint pt c/o heartburn, constipation, anxiety.Follow-up on anxiety issues.1 month.6 month. Additional Source Comments INFORMATION SOURCE (unrecogn ized section and content) DATE CREATED AUTHOR 04/28/2018 [facility] DATE CREATED AUTHOR AUTHOR'S ORGANIZ ATION 08/18/2021 [facility] DATE CREATED AUTHOR AUTHOR'S ORGANIZ ATION 06/20/2022 [employer] DATE CREATED AUTHOR AUTHOR'S ORGANIZ ATION 07/06/2022 [facility] DATE CREATED AUTHOR AUTHOR'S ORGANIZ ATION 07/06/2022 [facility] DATE CREATED AUTHOR AUTHOR'S ORGANIZ ATION 07/21/2022 [facility] DATE CREATED AUTHOR AUTHOR'S ORGANIZ ATION 07/08/2023 [facility] DATE CREATED AUTHOR AUTHOR'S ORGANIZ ATION 06/10/2024 [facility] DATE CREATED AUTHOR AUTHOR'S ORGANIZ ATION 06/16/2024 [facility] DATE CREATED AUTHOR AUTHOR'S ORGANIZ ATION 10/09/2024 [facility] <item> Privacy Markings (unrecogniz ed section and content) Section Author: Annelise Ware PROHIBITION ON REDISCLOSURE OF CONFIDENTIAL INFORMATION This notice accompanies a disclosure of information concerning a client made to you with the consent of such client. Reason for Visit (unrecogniz ed section and content) Reason Comments Anxiety Needs refills Reason Comments pt here for med check,and flu shot Specialty Diagnoses / Procedures Referred By Darion blanco Referred To Contact Primary Care Procedures Follow Up In Primary Care - Health Maintenance Dee Muñiz APRN-CNP [address] [place] [address] Referral ID Status Reason Start Date Expiration Date Visits Re quested Visits Authorized [id number] Closed 12/11/2022 06/09/2023 1 1 Reason Comments pt here for 1 yr med check Specialty Diagnoses / Procedures Referred By Darion blanco Referred To Contact Primary Care Procedures Follow Up In Primary Care - Established Saeed Shi PA-C [address] [facility] [place][note 2], [address] [address] Phone: tel: fax: Referral ID Status Reason Start Date Expiration Date V isits Requested Visits Authorized [id number] Authorized 06/13/2023 06/12/2024 1 1 Care Teams (unrecognized sec tion and content) Lead Caster Helper Relationship Specialty Start Date End Date Dee Muñiz APRN-CNP [address] [facility] [place][note 2], [place] [address] PCP - General 11/16/21 Dee Muñiz APRN-CNP [address] [facility] [place][note 2], [address] [place] [address] PCP - MMO ACO PCP 12/25/21 Lead Caster Helper Relationship Specialty Start Date End Date Dee Muñiz, CAREER PLACEMENT SPECIALIST-FOREIGN EXCHANGE TRADER [address] [place] [address] PCP - MMO ACO PCP 12/25/21 Saeed Shi PA-C [address] [facility] [place][note 2], [address] [place] [address] PCP - General Family Medicine 06/13/23 Lead Caster Helper Relationship Specialty Start Date End Date Saeed Shi PA-C [address] [facility] [place][note 2], [address] [place] [address] PCP - General Family Medicine 06/13/23 Saeed Shi PA-C [address] [facility] [place][note 2], [address] [place] [address] PCP - MMO IWONAO PCP 06/27/23 FOR RECORDS PERTAINING TO PATIENTS WHO ARE OR HAVE BEEN ENROLLED IN A CHEMICAL DEPENDENCY/SUBSTANCEABUSE PROGRAM, SOME INFORMATION MAY BE OMITTED. This clinical summary was aggregated from multiple sources. Caution should be exercised in using it in the provision of clinical care. This summary normalizes information from multiple sources, and as a consequence, information in this document may materially change the coding, format and clinical context of patient data. In addition, data may be omitted in some cases. CLINICAL DECISIONS SHOULD BE BASED ON THE PRIMARY CLINICAL RECORDS. [employer] [facility]. provides no warranty or guarantee of the accuracy or completeness of information in this document.
== END | disposition home or self-care (01) ==
LOC: OPBI 15:28
PROVIDERS: PCP Physician Assistant
DX: Z12.31 Encounter for screening mammogram for malignant neoplasm of breast (principal)
CPT/HCPCS: 77063; 77067